=== PATIENT | male | born 1955 | race Caucasian/White ===

== ENCOUNTER → 2016-03-18 | Outpatient (CLI) | payer MEDICARE, BC ==
--- NOTE | 2016-03-18 16:47 | CT ---
EXAMINATION TYPE: CT ChestAbdPelvis w con DATE OF EXAM: 03/18/2016 4:30 PM COMPARISON: Prior CT chest, abdomen pelvis second of April 2015 HISTORY: Follow up after testicular CA. CT DLP: 1839 mGycm Automated exposure control for dose reduction was used. CONTRAST: CT scan of the chest, abdomen and pelvis is performed with Oral Contrast and with IV Contrast, patien t injected with 100 mL of Omnipaque 300. FINDINGS: LUNGS: The lungs are grossly clear, there is no concerning parenchymal mass or nodule identified. T here is no pleural effusion or pneumothorax seen. The tracheobronchial tree is patent. MEDIASTINUM: There are no greater than 1 cm hilar or mediastinal lymph nodes. No pericardial effusi on is seen. AORTA: No significant abnormality is seen. OTHER: No additional significant abnormality is seen. LIVER/GB: Liver shows low attenuation as on previous exam suggestive of fatty infiltration. Focal spa ring is present adjacent to the gallbladder. PANCREAS: No significant abnormality is seen. SPLEEN: No significant abnormality is seen. ADRENALS: No significant abnormality is seen. KIDNEYS: No significant abnormality is seen. REPRODUCTIVE ORGANS: No gross abnormality seen. BOWEL: No significant abnormality is seen. FREE AIR: No Free Air visible. ASCITES: None seen. RETROPERITONEAL ADENOPATHY: Surgical clips compatible with prior lymph node dissection, inferior baldev a cava filter again noted. LYMPH NODES: No greater than 1 cm abdominal or pelvic lymph nodes are appreciated. URINARY BLADDER: Bladder wall thickening is stable. PELVIC ADENOPATHY: The pelvis is somewhat obscured by artifact due to patient's hip prosthetics OSSEOUS STRUCTURES: Postoperative changes are again noted in the lumbar spine, bilateral hips. IMPRESSION: Essentially stable exam.
== END | disposition home or self-care (01) ==
LOC: RADCTMAIN 14:30
PROVIDERS: ATTEND Internal Medicine
DX: C62.90 Malignant neoplasm of unspecified testis, unspecified whether descended or undescended (principal)
CPT/HCPCS: 71260; 74177; Q9967

== ENCOUNTER 2016-11-05 15:30 | Emergency (ER) | payer MEDICARE, BC ==
[2016-11-05] MEDS ORDERED: KETOROLAC 30 MG/ML 1 ML VIAL IVP STA (15:50)
[2016-11-05 16:10] VITALS: RESP 16
--- NOTE | 2016-11-05 16:14 | ED ---
Abdominal Pain HPI - General Chief Complaint: Abdominal Pain Stated Complaint: Abd Pain Time Seen by Provider: 11/05/16 15:40 Source: patient Mode of arrival: EMS Limitations: no limitations - History of Present Illness Initial Comments: 4-year-old male arrives EMS chief complaint of severe abdominal pain lasted for approximately 3-5 minutes after he had a bowel movement. Patient reports that it gradually started to subside. Patient reports he had a pain similar to this when his bowels twisted nonicteric. He has history of hernia surgeries, testicular cancer which is now on remission. Patient denies any recent fever or chills, denies any specific abdominal pain at this time. He reports that the pain is somewhat subsiding on its own. Patient denies any blood in his stools or diarrhea. He states that he had normal bowel movement when after reports the pain started to occur. - Related Data Home Medications Medication Instructions Recorded Confirmed Morphine Sulfate [Ms Contin] 15 mg PO Q8H 11/22/13 11/05/16 Omeprazole [PriLOSEC] 20 mg PO BID 11/22/13 11/05/16 Zolpidem [Ambien] 10 mg PO HS 11/22/13 11/05/16 clonazePAM [KlonoPIN] 0.5 mg PO TID 11/22/13 11/05/16 Venlafaxine HCl [Effexor XR] 75 mg PO BID 07/06/14 11/05/16 Cholecalciferol (Vitamin D3) 2,000 unit PO DAILY 11/05/16 11/05/16 [Vitamin D3] Gemfibrozil [Lopid] 600 mg PO BID 11/05/16 11/05/16 Lisinopril [Zestril] 10 mg PO DAILY 11/05/16 11/05/16 Multivitamins, Thera [Multivitamin 1 tab PO DAILY 11/05/16 11/05/16 (formulary)] Rivaroxaban [Xarelto] 15 mg PO DAILY 11/05/16 11/05/16 sitaGLIPtin PHOS/metFORMIN HCL 1 tab PO BID 11/05/16 11/05/16 [Janumet 50-1,000 mg Tablet] tiZANidine [Zanaflex] 2 mg PO Q8HR 11/05/16 11/05/16 Previous Rx's Medication Instructions Recorded Ciprofloxacin HCl [Cipro] 500 mg PO Q12HR #14 tablet 11/05/16 Dicyclomine [Bentyl] 10 mg PO TID #15 capsule 11/05/16 metroNIDAZOLE [Flagyl] 500 mg PO TID #21 tab 11/05/16 Allergies Allergy/AdvReac Type Severity Reaction Status Date / Time adhesive tape Allergy Rash/Hives Verified 11/05/16 16:25 Iodinated Contrast- Oral and Allergy Rash/Hives Verified 11/05/16 16:09 IV Dye [Iodinated Contrast Media - IV Dye] Review of Systems ROS Statement: Those systems with pertinent positive or pertinent negative responses have been documented in the HPI. ROS Other: All systems not noted in ROS Statement are negative. Past Medical History Past Medical History: Blood Disorder, Cancer, Deep Vein Thrombosis (DVT), GERD/ Reflux, Hyperlipidemia, Osteoarthritis (OA), Pulmonary Embolus (PE), Sleep Apnea /CPAP/BIPAP Additional Past Medical History / Comment(s): neuropathy, testicular ca HAD LYMPH NODES REMOVED- HAD CHEMO(LEFT HIM WITH NERVE DAMAGE FROM KNEES DOWN AND WEAKENED BONES IN HIPS PT REQUIRED TERRANCE HIP REPLACEMENTS) AND bone marrow transplant 2001 , HAS A BBB, GETS LYMPHEDEMA SINCE LYMPH NODE REMOVED, WEARS LT BRACE LOWER LEG. HASCLOTTING FACTOR DISORDER(PROTHROMBIN). KIDNEY STONES History of Any Multi-Drug Resistant Organisms: None Reported Past Surgical History: Back Surgery, Hernia Repair Additional Past Surgical History / Comment(s): filter for dvts ,TERRANCE INGUINAL HERNIA AND ADB HERNIA REPAIR, REMOVED TESTICULAR TUMOR/LYMPH. X2 BACK SX RODS IN PLACE FROM L4 THRU S1. HAD HALF HIS BLADDER REMOVED AT AGE 18 MONTHS REASON UNK, TERRANCE HIP REPLACEMENTS TERRANCE KNEES PATELLAR TENDON TRANSFER, RT ELBOW REMOVED BONE CHIP, RT SHOULDER ROTATOR CUFF AND CUT TOP OF THE BONE OFF,LT BREAST LUMP REMOVE WAS BENIGN. Past Anesthesia/Blood Transfusion Reactions: Motion Sickness Additional Past Anesthesia/Blood Transfusion Reaction / Comment(s): BLOOD TRANSFUSION IN PAST -NO COMPLICATIONS. MOTION SICKNESS/VERTIGO, CLAUSTERPHOBIA. Past Psychological History: Anxiety, Depression, Panic Disorder Smoking Status: Former smoker Past Alcohol Use History: None Reported Past Drug Use History: None Reported - Past Family History Father Additional Family Medical History / Comment(s): 1991 AT AGE 72 EMPHYSEMA Mother Family Medical History: Hyperlipidemia, Hypertension Additional Family Medical History / Comment(s): STILL ALIVE AT 88, HX MIGRAINES General Exam Limitations: no limitations Course Vital Signs 11/05/16 15:43 Temperature 98.2 F Pulse Rate 75 Respiratory 16 Rate Blood Pressure 131/61 O2 Sat by Pulse 99 Oximetry Medical Decision Making - Lab Data Result diagrams: 11/05/16 16:14 11/05/16 16:14 Lab Results 11/05/16 11/05/16 11/05/16 Range/Units 16:14 16:14 16:45 WBC 12.0 H (3.8-10.6) k/uL RBC 4.56 (4.30-5.90) m/uL Hgb 14.0 (13.0-17.5) gm/dL Hct 40.0 (39.0-53.0) % MCV 87.6 (80.0-100.0) fL MCH 30.8 (25.0-35.0) pg MCHC 35.1 (31.0-37.0) g/dL RDW 13.9 (11.5-15.5) % Plt Count 182 (150-450) k/uL Neutrophils % 87 % Lymphocytes % 8 % Monocytes % 4 % Eosinophils % 1 % Basophils % 0 % Neutrophils # 10.5 H (1.3-7.7) k/uL Lymphocytes # 0.9 L (1.0-4.8) k/uL Monocytes # 0.4 (0-1.0) k/uL Eosinophils # 0.1 (0-0.7) k/uL Basophils # 0.0 (0-0.2) k/uL Sodium 140 (137-145) mmol/L Potassium 4.5 (3.5-5.1) mmol/L Chloride 104 (98-107) mmol/L Carbon Dioxide 27 (22-30) mmol/L Anion Gap 9 mmol/L BUN 18 (9-20) mg/dL Creatinine 0.90 (0.66-1.25) mg/dL Est GFR (MDRD) Af Amer >60 (>60 ml/min/1.73 sqM) Est GFR (MDRD) Non-Af >60 (>60 ml/min/1.73 sqM) Glucose 116 H (74-99) mg/dL Calcium 9.2 (8.4-10.2) mg/dL Total Bilirubin 0.6 (0.2-1.3) mg/dL AST 23 (17-59) U/L ALT 42 (21-72) U/L Alkaline Phosphatase 85 (38-126) U/L Total Protein 7.1 (6.3-8.2) g/dL Albumin 4.2 (3.5-5.0) g/dL Amylase 45 (30-110) U/L Lipase 63 (23-300) U/L Urine Color Yellow Urine Appearance Clear (Clear) Urine pH 5.0 (5.0-8.0) Ur Specific [place] 1.015 (1.001-1.035) Urine Protein Negative (Negative) Urine Glucose (UA) Negative (Negative) Urine Ketones Negative (Negative) Urine Blood Negative (Negative) Urine Nitrite Negative (Negative) Urine Bilirubin Negative (Negative) Urine Urobilinogen <2.0 (<2.0) mg/dL Ur Leukocyte Esterase Negative (Negative) Disposition Clinical Impression: Abdominal pain Disposition: HOME SELF-CARE Condition: Good Instructions: Abdominal Pain (ED) Additional Instructions: Patient advised to follow-up with primary care provider tomorrow. Take the antibiotics and Bentyl as prescribed. Return to the emergency department if any alarming signs or symptoms occur. Prescriptions: Ciprofloxacin HCl [Cipro] 500 mg PO Q12HR #14 tablet Dicyclomine [Bentyl] 10 mg PO TID #15 capsule metroNIDAZOLE [Flagyl] 500 mg PO TID #21 tab Referrals: Vivien Meneses MD [Primary Care Provider] - 1-2 days Time of Disposition: 17:39
[2016-11-05 16:29] LABS: Basophils % (A) 0 %; CH 32.2; CHCM 36.9; Eosinophils # (A) 0.1 k/uL (0-0.7); Eosinophils % (A) 1 %; HDW 2.95; Luc % (Auto) 1; Lymphocytes # (A) 0.9 k/uL (1.0-4.8); Lymphocytes % (A) 8 %; MCH 30.8 pg (25.0-35.0); MCHC 35.1 g/dL (31.0-37.0); MCV 87.6 fL (80.0-100.0); Mean Platelet Volume 7.6; Monocytes # (A) 0.4 k/uL (0-1.0); Monocytes % (A) 4 %; Neutrophils # (A) 10.5 k/uL (1.3-7.7); Neutrophils % (A) 87 %; RBC 4.56 m/uL (4.30-5.90); RDW 13.9 % (11.5-15.5); WBC (Perox) 11.36
--- NOTE | 2016-11-05 16:32 | XR ---
EXAMINATION TYPE: XR KUB DATE OF EXAM: 11/05/2016 COMPARISON: NONE HISTORY: Abdominal pain TECHNIQUE: One view abdominal series FINDINGS: The osseous structures are intact. The bowel gas pattern is nonspecific. Previous surgery involving the vertebral column abdomen and joints noted. Suggestion of possible IVC filter which is somewhat ti lted. Correlate clinically.. IMPRESSION: 1. Nonspecific abdomen.
[2016-11-05 16:34] LABS: ALT 42 U/L (21-72); AST 23 U/L (17-59); Alkaline Phosphatase 85 U/L (38-126); Amylase 45 U/L (30-110); Anion Gap 9 mmol/L; Blood Urea Nitrogen 18 mg/dL (9-20); Calcium 9.2 mg/dL (8.4-10.2); Carbon Dioxide 27 mmol/L (22-30); Chloride 104 mmol/L (98-107); Glucose 116 mg/dL (74-99); Non-African American GFR(MDRD) >60 (>60 ml/min/1.73 sqM); Potassium 4.5 mmol/L (3.5-5.1); Sodium 140 mmol/L (137-145); Total Bilirubin 0.6 mg/dL (0.2-1.3); Total Protein 7.1 g/dL (6.3-8.2)
[2016-11-05 16:54] LABS: Appearance,Urine Clear (Clear); Bilirubin,Urine Negative (Negative); Glucose,Urine (UA) Negative (Negative); Ketones,Urine Negative (Negative); Leukocyte Esterase,Urine Negative (Negative); Nitrite,Urine Negative (Negative); Protein,Urine Negative (Negative); Specific Gravity,Urine 1.015 (1.001-1.035); UA Billing (MACRO vs. MICRO) CHEM; Urobilinogen,Urine <2.0 mg/dL (<2.0)
[2016-11-05] MEDS ORDERED: DICYCLOMINE 10 MG/ML 2 ML AMP IM STA (17:40)
[2016-11-05 17:55] VITALS: BP 120/70; PULSE 68; TEMP 98
== END 2016-11-05 17:53 | disposition home or self-care (01) ==
LOC: EC 15:30
DX: R10.9 Unspecified abdominal pain (principal); K21.9 Gastro-esophageal reflux disease without esophagitis; E78.5 Hyperlipidemia, unspecified; C62.90 Malignant neoplasm of unspecified testis, unspecified whether descended or undescended; F41.0 Panic disorder [episodic paroxysmal anxiety]; F32.9 Major depressive disorder, single episode, unspecified; G47.30 Sleep apnea, unspecified; Z99.89 Dependence on other enabling machines and devices; Z90.49 Acquired absence of other specified parts of digestive tract; Z79.891 Long term (current) use of opiate analgesic; Z79.899 Other long term (current) drug therapy; Z79.84 Long term (current) use of oral hypoglycemic drugs; Z87.891 Personal history of nicotine dependence; Z91.048 Other nonmedicinal substance allergy status; Z53.20 Procedure and treatment not carried out because of patient's decision for unspecified reasons
CPT/HCPCS: 36415; 74000; 80053; 81003; 82150; 83690; 85025; 96372; 99284

== ENCOUNTER 2017-02-01 17:21 | Emergency (ER) | payer MEDICARE, BC ==
[2017-02-01] MEDS ORDERED: ACETAMINOPHEN TAB 500 MG TAB PO STA (17:38)
[2017-02-01] MEDS ORDERED: IBUPROFEN 600 MG TAB PO STA (17:38)
--- NOTE | 2017-02-01 17:46 | ED ---
General Adult HPI - General Chief complaint: Nausea/Vomiting/Diarrhea Stated complaint: pain all over, nausea, eye pain Time Seen by Provider: 02/01/17 17:34 Source: patient, RN notes reviewed Mode of arrival: ambulatory Limitations: no limitations - History of Present Illness Initial comments: 61-year-old male presents to the emergency department with a chief complaint of a allover body aches and fever. He states he has had some nausea. He states that around 10:00 this morning he started to feel this today. He denies any vomiting with this. He states that he is not taking any medicine for the fever. They were concerned due to how he was feeling. Patient denies any recent shortness of breath, chest pain, back pain, abdominal pain, nausea vomiting, numbness or tingling, dysuria or hematuria, constipation or diarrhea, headaches or visual changes, or any other current symptoms. - Related Data Home Medications Medication Instructions Recorded Confirmed Morphine Sulfate [Ms Contin] 15 mg PO Q8H 11/22/13 02/01/17 Omeprazole [PriLOSEC] 20 mg PO DAILY 11/22/13 02/01/17 Zolpidem [Ambien] 10 mg PO HS 11/22/13 02/01/17 clonazePAM [KlonoPIN] 0.5 mg PO BID 11/22/13 02/01/17 Venlafaxine HCl [Effexor XR] 75 mg PO BID 07/06/14 02/01/17 Cholecalciferol (Vitamin D3) 2,000 unit PO DAILY 11/05/16 02/01/17 [Vitamin D3] Gemfibrozil [Lopid] 600 mg PO DAILY 11/05/16 02/01/17 Lisinopril [Zestril] 10 mg PO DAILY 11/05/16 02/01/17 Multivitamins, Thera [Multivitamin 1 tab PO DAILY 11/05/16 02/01/17 (formulary)] sitaGLIPtin PHOS/metFORMIN HCL 1 tab PO BID 11/05/16 02/01/17 [Janumet 50-1,000 mg Tablet] tiZANidine [Zanaflex] 2 mg PO DAILY 11/05/16 02/01/17 Rivaroxaban [Xarelto] 20 mg PO DAILY 02/01/17 02/01/17 tiZANidine [Zanaflex] 4 mg PO HS 02/01/17 02/01/17 Previous Rx's Medication Instructions Recorded Albuterol Inhaler [Ventolin Hfa 1 - 2 puff INHALATION Q4-6H PRN #1 02/01/17 Inhaler] inhaler Levofloxacin [Levaquin] 750 mg PO DAILY #7 tab 02/01/17 Allergies Allergy/AdvReac Type Severity Reaction Status Date / Time adhesive tape Allergy Rash/Hives Verified 02/01/17 18:18 Iodinated Contrast- Oral and Allergy Rash/Hives Verified 02/01/17 18:18 IV Dye [Iodinated Contrast Media - IV Dye] Review of Systems ROS Statement: Those systems with pertinent positive or pertinent negative responses have been documented in the HPI. ROS Other: All systems not noted in ROS Statement are negative. Past Medical History Past Medical History: Blood Disorder, Cancer, Deep Vein Thrombosis (DVT), GERD/ Reflux, Hyperlipidemia, Osteoarthritis (OA), Pulmonary Embolus (PE), Sleep Apnea /CPAP/BIPAP Additional Past Medical History / Comment(s): neuropathy, testicular ca HAD LYMPH NODES REMOVED- HAD CHEMO(LEFT HIM WITH NERVE DAMAGE FROM KNEES DOWN AND WEAKENED BONES IN HIPS PT REQUIRED TERRANCE HIP REPLACEMENTS) AND bone marrow transplant 2001 , HAS A BBB, GETS LYMPHEDEMA SINCE LYMPH NODE REMOVED, WEARS LT BRACE LOWER LEG. HASCLOTTING FACTOR DISORDER(PROTHROMBIN). KIDNEY STONES History of Any Multi-Drug Resistant Organisms: None Reported Past Surgical History: Back Surgery, Hernia Repair Additional Past Surgical History / Comment(s): filter for dvts ,TERRANCE INGUINAL HERNIA AND ADB HERNIA REPAIR, REMOVED TESTICULAR TUMOR/LYMPH. X2 BACK SX RODS IN PLACE FROM L4 THRU S1. HAD HALF HIS BLADDER REMOVED AT AGE 18 MONTHS REASON UNK, TERRANCE HIP REPLACEMENTS TERRANCE KNEES PATELLAR TENDON TRANSFER, RT ELBOW REMOVED BONE CHIP, RT SHOULDER ROTATOR CUFF AND CUT TOP OF THE BONE OFF,LT BREAST LUMP REMOVE WAS BENIGN. Past Anesthesia/Blood Transfusion Reactions: Motion Sickness Additional Past Anesthesia/Blood Transfusion Reaction / Comment(s): BLOOD TRANSFUSION IN PAST -NO COMPLICATIONS. MOTION SICKNESS/VERTIGO, CLAUSTERPHOBIA. Past Psychological History: Anxiety, Depression, Panic Disorder Smoking Status: Former smoker Past Alcohol Use History: None Reported Past Drug Use History: None Reported - Past Family History Father Additional Family Medical History / Comment(s): 1991 AT AGE 72 EMPHYSEMA Mother Family Medical History: Hyperlipidemia, Hypertension Additional Family Medical History / Comment(s): STILL ALIVE AT 88, HX MIGRAINES General Exam Limitations: no limitations General appearance: alert, in no apparent distress Head exam: Present: atraumatic, normocephalic, normal inspection ENT exam: Present: normal exam, mucous membranes moist Neck exam: Present: normal inspection. Absent: tenderness, meningismus, lymphadenopathy Respiratory exam: Present: normal lung sounds bilaterally. Absent: respiratory distress, wheezes, rales, rhonchi, stridor Cardiovascular Exam: Present: regular rate, normal rhythm, normal heart sounds. Absent: systolic murmur, diastolic murmur, rubs, gallop, clicks Extremities exam: Present: normal inspection, full ROM, normal capillary refill. Absent: tenderness, pedal edema, joint swelling, calf tenderness Back exam: Present: normal inspection Neurological exam: Present: alert, oriented X3 Psychiatric exam: Present: normal affect, normal mood Skin exam: Present: warm, dry, intact, normal color. Absent: rash Course Vital Signs 02/01/17 02/01/17 17:28 18:41 Temperature 100.5 F H 100.3 F H Pulse Rate 100 93 Respiratory 20 16 Rate Blood Pressure 97/57 104/52 O2 Sat by Pulse 97 94 L Oximetry Medical Decision Making - Medical Decision Making 61-year-old male presents for fever and bodyaches. At this time patient's lab work and imaging have been reviewed. This time it appears the patient does have a new developing pneumonia. At this time we discussed continuing to take Tylenol home for fever. We discussed taking Levaquin as prescribed help slightly pneumonia and we discussed follow-up return parameters. Patient stated he understood and all questions have been answered. He will be discharged. - Lab Data Result diagrams: 02/01/17 18:32 02/01/17 18:32 Lab Results 02/01/17 02/01/17 02/01/17 Range/Units 17:40 18:32 18:32 WBC 18.8 H (3.8-10.6) k/uL RBC 4.28 L (4.30-5.90) m/uL Hgb 13.3 (13.0-17.5) gm/dL Hct 38.8 L (39.0-53.0) % MCV 90.6 (80.0-100.0) fL MCH 31.1 (25.0-35.0) pg MCHC 34.3 (31.0-37.0) g/dL RDW 15.0 (11.5-15.5) % Plt Count 177 (150-450) k/uL Neutrophils % 89 % Lymphocytes % 6 % Monocytes % 4 % Eosinophils % 1 % Basophils % 0 % Neutrophils # 16.8 H (1.3-7.7) k/uL Lymphocytes # 1.0 (1.0-4.8) k/uL Monocytes # 0.7 (0-1.0) k/uL Eosinophils # 0.2 (0-0.7) k/uL Basophils # 0.0 (0-0.2) k/uL Sodium 138 (137-145) mmol/L Potassium 4.2 (3.5-5.1) mmol/L Chloride 102 (98-107) mmol/L Carbon Dioxide 27 (22-30) mmol/L Anion Gap 9 mmol/L BUN 20 (9-20) mg/dL Creatinine 1.00 (0.66-1.25) mg/dL Est GFR (MDRD) Af Amer >60 (>60 ml/min/1.73 sqM) Est GFR (MDRD) Non-Af >60 (>60 ml/min/1.73 sqM) Glucose 112 H (74-99) mg/dL Plasma Lactic Acid Ketan (0.7-2.0) mmol/L Calcium 9.2 (8.4-10.2) mg/dL Total Bilirubin 0.9 (0.2-1.3) mg/dL AST 22 (17-59) U/L ALT 45 (21-72) U/L Alkaline Phosphatase 86 (38-126) U/L Total Protein 7.0 (6.3-8.2) g/dL Albumin 4.2 (3.5-5.0) g/dL Amylase <30 L (30-110) U/L Lipase 57 (23-300) U/L Urine Color Urine Appearance (Clear) Urine pH (5.0-8.0) Ur Specific [place] (1.001-1.035) Urine Protein (Negative) Urine Glucose (UA) (Negative) Urine Ketones (Negative) Urine Blood (Negative) Urine Nitrite (Negative) Urine Bilirubin (Negative) Urine Urobilinogen (<2.0) mg/dL Ur Leukocyte Esterase (Negative) Urine RBC (0-5) /hpf Urine WBC (0-5) /hpf Hyaline Casts (0-2) /lpf Urine Mucus (None) /hpf Influenza Type A RNA Not Detected (Not Detectd) Influenza Type B (PCR) Not Detected (Not Detectd) 02/01/17 02/01/17 Range/Units 18:32 19:15 WBC (3.8-10.6) k/uL RBC (4.30-5.90) m/uL Hgb (13.0-17.5) gm/dL Hct (39.0-53.0) % MCV (80.0-100.0) fL MCH (25.0-35.0) pg MCHC (31.0-37.0) g/dL RDW (11.5-15.5) % Plt Count (150-450) k/uL Neutrophils % % Lymphocytes % % Monocytes % % Eosinophils % % Basophils % % Neutrophils # (1.3-7.7) k/uL Lymphocytes # (1.0-4.8) k/uL Monocytes # (0-1.0) k/uL Eosinophils # (0-0.7) k/uL Basophils # (0-0.2) k/uL Sodium (137-145) mmol/L Potassium (3.5-5.1) mmol/L Chloride (98-107) mmol/L Carbon Dioxide (22-30) mmol/L Anion Gap mmol/L BUN (9-20) mg/dL Creatinine (0.66-1.25) mg/dL Est GFR (MDRD) Af Amer (>60 ml/min/1.73 sqM) Est GFR (MDRD) Non-Af (>60 ml/min/1.73 sqM) Glucose (74-99) mg/dL Plasma Lactic Acid Ketan 1.7 (0.7-2.0) mmol/L Calcium (8.4-10.2) mg/dL Total Bilirubin (0.2-1.3) mg/dL AST (17-59) U/L ALT (21-72) U/L Alkaline Phosphatase (38-126) U/L Total Protein (6.3-8.2) g/dL Albumin (3.5-5.0) g/dL Amylase (30-110) U/L Lipase (23-300) U/L Urine Color Yellow Urine Appearance Clear (Clear) Urine pH 5.5 (5.0-8.0) Ur Specific [place] 1.023 (1.001-1.035) Urine Protein Trace H (Negative) Urine Glucose (UA) Negative (Negative) Urine Ketones Negative (Negative) Urine Blood Small H (Negative) Urine Nitrite Negative (Negative) Urine Bilirubin Negative (Negative) Urine Urobilinogen <2.0 (<2.0) mg/dL Ur Leukocyte Esterase Negative (Negative) Urine RBC 5 (0-5) /hpf Urine WBC 1 (0-5) /hpf Hyaline Casts 1 (0-2) /lpf Urine Mucus Occasional H (None) /hpf Influenza Type A RNA (Not Detectd) Influenza Type B (PCR) (Not Detectd) - Radiology Data Radiology results: report reviewed, image reviewed Disposition Clinical Impression: Right upper lobe pneumonia Disposition: HOME SELF-CARE Condition: Stable Instructions: Bacterial Pneumonia (ED) Additional Instructions: Please use medication as discussed. Please follow up with family doctor if symptoms have not improved over the next two days. Please return to the emergency room if your symptoms increase or worsen or for any other concerns. Prescriptions: Albuterol Inhaler [Ventolin Hfa Inhaler] 1 - 2 puff INHALATION Q4-6H PRN #1 inhaler PRN Reason: Cough Levofloxacin [Levaquin] 750 mg PO DAILY #7 tab Referrals: Vivien Meneses MD [Primary Care Provider] - 1-2 days Time of Disposition: 19:34
[2017-02-01] MEDS ORDERED: SODIUM CHLORIDE 0.9% 500 ML IV STA (18:15)
[2017-02-01] MEDS ORDERED: ONDANSETRON 4 MG/2 ML VIAL IVP STA (18:32)
[2017-02-01 18:45] LABS: Basophils % (A) 0 %; CH 31.3; CHCM 34.7; Eosinophils # (A) 0.2 k/uL (0-0.7); Eosinophils % (A) 1 %; HCT 38.8 % (39.0-53.0); HDW 2.71; HGB 13.3 gm/dL (13.0-17.5); Luc # (Auto) 0.08; Luc % (Auto) 0; Lymphocytes % (A) 6 %; MCH 31.1 pg (25.0-35.0); MCHC 34.3 g/dL (31.0-37.0); MCV 90.6 fL (80.0-100.0); Monocytes # (A) 0.7 k/uL (0-1.0); Monocytes % (A) 4 %; Neutrophils # (A) 16.8 k/uL (1.3-7.7); Neutrophils % (A) 89 %; RBC 4.28 m/uL (4.30-5.90); WBC 18.8 k/uL (3.8-10.6); WBC (Perox) 19.78
[2017-02-01 18:55] LABS: ALT 45 U/L (21-72); AST 22 U/L (17-59); Alkaline Phosphatase 86 U/L (38-126); Amylase <30 U/L (30-110); Anion Gap 9 mmol/L; Blood Urea Nitrogen 20 mg/dL (9-20); Calcium 9.2 mg/dL (8.4-10.2); Carbon Dioxide 27 mmol/L (22-30); Chloride 102 mmol/L (98-107); Glucose 112 mg/dL (74-99); Non-African American GFR(MDRD) >60 (>60 ml/min/1.73 sqM); Potassium 4.2 mmol/L (3.5-5.1); Sodium 138 mmol/L (137-145); Total Bilirubin 0.9 mg/dL (0.2-1.3)
[2017-02-01] MEDS ORDERED: MORPHINE SULFATE 2 MG/ML SYRINGE IVP STA (19:03)
--- NOTE | 2017-02-01 19:04 | XR ---
EXAMINATION TYPE: XR chest 2V DATE OF EXAM: 02/01/2017 COMPARISON: 08/03/2014 HISTORY: Cough TECHNIQUE: Frontal and lateral views of the chest are obtained. FINDINGS: There is some mild infiltrate in the anterior right upper lobe. The other lung wood are fairly clear. There is no pleural effusion. Heart size is normal. Bony thorax is intact. There is ost eoarthritis in the right shoulder joint. IMPRESSION: There is evidence of some new mild infiltrate in the right upper lobe compared to old ex am. Normal heart.
[2017-02-01] MEDS ORDERED: LEVOFLOXACIN 750 MG TAB PO STA (19:09)
[2017-02-01 19:30] LABS: Appearance,Urine Clear (Clear); Bilirubin,Urine Negative (Negative); Glucose,Urine (UA) Negative (Negative); Ketones,Urine Negative (Negative); Leukocyte Esterase,Urine Negative (Negative); Mucus,Urine Occasional /hpf; Nitrite,Urine Negative (Negative); PH, Urine 5.5 (5.0-8.0); Particle Count 2363; Protein,Urine Trace (Negative); RBC,Urine 5 /hpf (0-5); Specific Gravity,Urine 1.023 (1.001-1.035); UA Billing (MACRO vs. MICRO) MICRO; Urobilinogen,Urine <2.0 mg/dL (<2.0); WBC,Urine 1 /hpf (0-5)
[2017-02-01 19:46] VITALS: BP 100/53; PULSE 85; RESP 17
[2017-02-01 19:54] VITALS: TEMP 97.2
== END 2017-02-01 19:53 | disposition home or self-care (01) ==
LOC: EC 17:21
DX: J18.9 Pneumonia, unspecified organism (principal); E78.5 Hyperlipidemia, unspecified; K21.9 Gastro-esophageal reflux disease without esophagitis; M19.90 Unspecified osteoarthritis, unspecified site; G47.30 Sleep apnea, unspecified; Z99.89 Dependence on other enabling machines and devices; F41.0 Panic disorder [episodic paroxysmal anxiety]; F32.9 Major depressive disorder, single episode, unspecified; Z85.47 Personal history of malignant neoplasm of testis; Z86.711 Personal history of pulmonary embolism; Z86.718 Personal history of other venous thrombosis and embolism; Z87.891 Personal history of nicotine dependence; Z79.84 Long term (current) use of oral hypoglycemic drugs; Z79.891 Long term (current) use of opiate analgesic; Z79.01 Long term (current) use of anticoagulants; Z79.899 Other long term (current) drug therapy; Z91.048 Other nonmedicinal substance allergy status; Z91.041 Radiographic dye allergy status
CPT/HCPCS: 99283; 96374; 36415; 80053; 82150; 83605; 83690; 85025; 81001; 87040; 87086; 87502; 71020; J2405

== ENCOUNTER → 2017-07-16 | Outpatient (CLI) | payer MEDICARE, BC ==
[2017-07-16 14:05] LABS: Blood Urea Nitrogen 25 mg/dL (9-20)
--- NOTE | 2017-07-16 15:23 | CT ---
EXAMINATION TYPE: CT abdomen pelvis w con DATE OF EXAM: 07/16/2017 COMPARISON: NONE INDICATION: Patient has no complaints at time of study. Follow up for known testicular ca. DLP: 1551 mGycm, Automated exposure control for dose reduction was used. CONTRAST: 100 mL of Isovue 300. Study performed with Oral Contrast TECHNIQUE: Axial images were obtained from above the diaphragm to the pubic rami in the axial plane a t 5 mm thick sections. Reconstructed images are reviewed on the computer in the coronal plane. FINDINGS: Limited CT sections are obtained the lung bases. The lung bases are clear. CT ABDOMEN: Liver: There is moderate fatty infiltration throughout the liver. No discrete masses or cysts are natasha dent. Spleen: Normal Pancreas: Somewhat small. Lymphadenopathy: Postsurgical changes are at the level of the renal arteries and veins in the lymph n ode chains. No suspicious adenopathy is evident. No periaortic or retrocaval adenopathy. Retrocrural peripheral mesenteric normal limits. Adrenal glands: The adrenal glands are normal. Gallbladder: Normal Kidneys: No masses are evident. No hydronephrosis is present. No cysts are present. Aorta: Vascular calcification is within the aorta. Inferior vena cava: Normal. CT PELVIS: Loops of bowel within the abdomen and pelvis are normal. There are loops of bowel which are incom pletely distended or lack oral contrast limiting their evaluation. Diverticular changes without acute diverticulitis within the sigmoid colon. Appendix: Normal as visualized. Urinary bladder: Decompressed with limited evaluation. The upper portion within the [id number] priya ears normal Genitourinary structures: Beam hardening artifact limits evaluation of the prostate Osseous structures: No suspicious lytic or sclerotic lesions. Bilateral hip prostheses are present. P ostsurgical changes are within the lower lumbar spine. IMPRESSIONS: 1. No suspicious changes to suggest metastatic disease within the [id number]
== END | disposition home or self-care (01) ==
LOC: RADCTMAIN 13:17
PROVIDERS: ATTEND Internal Medicine
DX: C62.11 Malignant neoplasm of descended right testis (principal)
CPT/HCPCS: 82565; 84520; 74177; 36415; Q9967

== ENCOUNTER 2018-02-28 20:03 | Emergency (ER) | payer MEDICARE, BC ==
[2018-02-28 20:14] VITALS: RESP 16
[2018-02-28] MEDS ORDERED: MORPHINE SULFATE 4 MG/ML SYRINGE IV STA (21:03)
--- NOTE | 2018-02-28 21:09 | ED ---
Extremity Problem HPI - General Chief complaint: Extremity Problem,Nontraumatic Stated complaint: Leg pain Time Seen by Provider: 02/28/18 20:39 Source: patient Mode of arrival: ambulatory Limitations: no limitations - History of Present Illness Initial comments: This patient is 62-year-old man with history of previous DVT/PE who states that he started having symptoms behind his right knee that felt similar to previous DVT. He states that it came on this morning. States that the pain was about a 6 out of 10. He states that he did some walking this afternoon and then he also was feeling short of breath and he was concerned that he may be developing another PE. He does have a Dave filter but states that he has previously had clots slipped through the filter area the patient does take Xarelto and states that he has been compliant with his medication. He is not having chest pain. He is not having any hemoptysis. No lightheadedness or syncope. MD Complaint: extremity pain -: hour(s) Location: right, lower extremity History of Same: Yes Radiation: none Severity scale (1-10): 6 Quality: aching Consistency: constant Improves with: nothing Worsens with: palpation Associated Symptoms: shortness of breath - Related Data Home Medications Medication Instructions Recorded Confirmed Morphine Sulfate [Ms Contin] 15 mg PO Q8H 11/22/13 02/28/18 Omeprazole [PriLOSEC] 20 mg PO DAILY 11/22/13 02/28/18 Zolpidem [Ambien] 10 mg PO HS 11/22/13 02/28/18 clonazePAM [KlonoPIN] 0.5 mg PO BID 11/22/13 02/28/18 Venlafaxine HCl [Effexor XR] 75 mg PO BID 07/06/14 02/28/18 Gemfibrozil [Lopid] 600 mg PO DAILY 11/05/16 02/28/18 Lisinopril [Zestril] 10 mg PO DAILY 11/05/16 02/28/18 sitaGLIPtin PHOS/metFORMIN HCL 1 tab PO BID 11/05/16 02/28/18 [Janumet 50-1,000 mg Tablet] Rivaroxaban [Xarelto] 20 mg PO DAILY 02/01/17 02/28/18 tiZANidine [Zanaflex] 4 mg PO BID 02/01/17 02/28/18 Allergies Allergy/AdvReac Type Severity Reaction Status Date / Time adhesive tape Allergy Rash/Hives Verified 02/28/18 20:48 Iodinated Contrast- Oral and Allergy Rash/Hives Verified 02/28/18 20:48 IV Dye [Iodinated Contrast Media - IV Dye] Review of Systems ROS Statement: Those systems with pertinent positive or pertinent negative responses have been documented in the HPI. ROS Other: All systems not noted in ROS Statement are negative. Constitutional: Denies: fever, chills, weakness Respiratory: Denies: cough, dyspnea, hemoptysis Cardiovascular: Reports: dyspnea on exertion. Denies: chest pain, palpitations , edema, syncope Gastrointestinal: Denies: abdominal pain, nausea, vomiting Genitourinary: Denies: dysuria Musculoskeletal: Reports: as per HPI. Denies: back pain Skin: Denies: rash Neurological: Denies: headache, weakness, numbness, paresthesias Past Medical History Past Medical History: Blood Disorder, Cancer, Deep Vein Thrombosis (DVT), GERD/ Reflux, Hyperlipidemia, Osteoarthritis (OA), Pulmonary Embolus (PE), Sleep Apnea /CPAP/BIPAP Additional Past Medical History / Comment(s): neuropathy, testicular ca HAD LYMPH NODES REMOVED- HAD CHEMO(LEFT HIM WITH NERVE DAMAGE FROM KNEES DOWN AND WEAKENED BONES IN HIPS PT REQUIRED TERRANCE HIP REPLACEMENTS) AND bone marrow transplant 2001 , HAS A BBB, GETS LYMPHEDEMA SINCE LYMPH NODE REMOVED, WEARS LT BRACE LOWER LEG. HASCLOTTING FACTOR DISORDER(PROTHROMBIN). KIDNEY STONES History of Any Multi-Drug Resistant Organisms: None Reported Past Surgical History: Back Surgery, Hernia Repair Additional Past Surgical History / Comment(s): filter for dvts ,TERRANCE INGUINAL HERNIA AND ADB HERNIA REPAIR, REMOVED TESTICULAR TUMOR/LYMPH. X2 BACK SX RODS IN PLACE FROM L4 THRU S1. HAD HALF HIS BLADDER REMOVED AT AGE 18 MONTHS REASON UNK, TERRANCE HIP REPLACEMENTS TERRANCE KNEES PATELLAR TENDON TRANSFER, RT ELBOW REMOVED BONE CHIP, RT SHOULDER ROTATOR CUFF AND CUT TOP OF THE BONE OFF,LT BREAST LUMP REMOVE WAS BENIGN. Past Anesthesia/Blood Transfusion Reactions: Motion Sickness Additional Past Anesthesia/Blood Transfusion Reaction / Comment(s): BLOOD TRANSFUSION IN PAST -NO COMPLICATIONS. MOTION SICKNESS/VERTIGO, CLAUSTERPHOBIA. Past Psychological History: Anxiety, Depression, Panic Disorder Smoking Status: Former smoker Past Alcohol Use History: None Reported Past Drug Use History: None Reported - Past Family History Father Additional Family Medical History / Comment(s): 1991 AT AGE 72 EMPHYSEMA Mother Family Medical History: Hyperlipidemia, Hypertension Additional Family Medical History / Comment(s): STILL ALIVE AT 88, HX MIGRAINES General Exam Limitations: no limitations General appearance: alert, in no apparent distress Head exam: Present: atraumatic, normocephalic Eye exam: Present: normal appearance. Absent: scleral icterus, conjunctival injection ENT exam: Present: normal oropharynx Neck exam: Present: normal inspection Respiratory exam: Present: normal lung sounds bilaterally. Absent: respiratory distress, wheezes, rales, rhonchi, stridor Cardiovascular Exam: Present: regular rate, normal rhythm, normal heart sounds. Absent: systolic murmur, diastolic murmur, rubs, gallop GI/Abdominal exam: Present: soft. Absent: distended, tenderness, guarding, rebound, rigid, mass Extremities exam: Present: normal inspection, full ROM, normal capillary refill , other (The patient does have some tenderness at the right popliteal fossa. No palpable cord. No Homans sign.). Absent: pedal edema Back exam: Present: normal inspection. Absent: CVA tenderness (R), CVA tenderness (L) Neurological exam: Present: alert Skin exam: Present: warm, dry, intact, normal color. Absent: rash Course Vital Signs 02/28/18 20:10 Temperature 98.2 F Pulse Rate 93 Respiratory 16 Rate Blood Pressure 102/65 O2 Sat by Pulse 93 L Oximetry Medical Decision Making - Lab Data Result diagrams: 02/28/18 20:24 02/28/18 20:24 Lab Results 02/28/18 02/28/18 02/28/18 Range/Units 20:24 20:24 20:29 WBC 7.7 (3.8-10.6) k/uL RBC 4.65 (4.30-5.90) m/uL Hgb 14.5 (13.0-17.5) gm/dL Hct 41.4 (39.0-53.0) % MCV 89.0 (80.0-100.0) fL MCH 31.2 (25.0-35.0) pg MCHC 35.1 (31.0-37.0) g/dL RDW 13.5 (11.5-15.5) % Plt Count 176 (150-450) k/uL Neutrophils % 68 % Lymphocytes % 22 % Monocytes % 6 % Eosinophils % 2 % Basophils % 0 % Neutrophils # 5.2 (1.3-7.7) k/uL Lymphocytes # 1.7 (1.0-4.8) k/uL Monocytes # 0.5 (0-1.0) k/uL Eosinophils # 0.2 (0-0.7) k/uL Basophils # 0.0 (0-0.2) k/uL D-Dimer 0.55 (<0.60) mg/L FEU Sodium 141 (137-145) mmol/L Potassium 4.6 (3.5-5.1) mmol/L Chloride 103 (98-107) mmol/L Carbon Dioxide 27 (22-30) mmol/L Anion Gap 11 mmol/L BUN 19 (9-20) mg/dL Creatinine 0.97 (0.66-1.25) mg/dL Est GFR (CKD-EPI)AfAm >90 (>60 ml/min/1.73 sqM) Est GFR (CKD-EPI)NonAf 83 (>60 ml/min/1.73 sqM) Glucose 106 H (74-99) mg/dL Calcium 9.8 (8.4-10.2) mg/dL Total Bilirubin 0.4 (0.2-1.3) mg/dL AST 28 (17-59) U/L ALT 29 (21-72) U/L Alkaline Phosphatase 87 (38-126) U/L Total Protein 7.3 (6.3-8.2) g/dL Albumin 4.3 (3.5-5.0) g/dL Disposition Clinical Impression: Leg pain Disposition: HOME SELF-CARE Condition: Good Instructions: Leg Pain (ED) Is patient prescribed a controlled substance at d/c from ED?: No Referrals: Vivien Meneses MD [Primary Care Provider] - 1-2 days
[2018-02-28 21:28] LABS: ALT 29 U/L (21-72); AST 28 U/L (17-59); Albumin 4.3 g/dL (3.5-5.0); Alkaline Phosphatase 87 U/L (38-126); Anion Gap 11 mmol/L; Basophils % (A) 0 %; Blood Urea Nitrogen 19 mg/dL (9-20); Calcium 9.8 mg/dL (8.4-10.2); Carbon Dioxide 27 mmol/L (22-30); Chloride 103 mmol/L (98-107); Eosinophils # (A) 0.2 k/uL (0-0.7); Eosinophils % (A) 2 %; Glucose 106 mg/dL (74-99); HCT 41.4 % (39.0-53.0); HGB 14.5 gm/dL (13.0-17.5); Lymphocytes # (A) 1.7 k/uL (1.0-4.8); Lymphocytes % (A) 22 %; MCH 31.2 pg (25.0-35.0); MCHC 35.1 g/dL (31.0-37.0); Mean Platelet Volume 7.5; Monocytes # (A) 0.5 k/uL (0-1.0); Monocytes % (A) 6 %; Neutrophils # (A) 5.2 k/uL (1.3-7.7); Neutrophils % (A) 68 %; Platelet Count 176 k/uL (150-450); Potassium 4.6 mmol/L (3.5-5.1); RBC 4.65 m/uL (4.30-5.90); RDW 13.5 % (11.5-15.5); Sodium 141 mmol/L (137-145); Total Bilirubin 0.4 mg/dL (0.2-1.3); Total Protein 7.3 g/dL (6.3-8.2); WBC 7.7 k/uL (3.8-10.6)
--- NOTE | 2018-02-28 21:32 | XR ---
EXAMINATION TYPE: XR chest 2V DATE OF EXAM: 02/28/2018 COMPARISON: 02/01/2017 HISTORY: Knee pain. Chest pain. TECHNIQUE: Frontal and lateral views of the chest are obtained. FINDINGS: Heart and mediastinum are normal. Lungs are clear. Costophrenic angles are clear. There ar e no hilar masses. Bony thorax is intact. There is significant osteoarthritis in the right shoulder j oint. IMPRESSION: No active cardiopulmonary disease. No adverse change compared to old exam.
[2018-02-28] MEDS ORDERED: HYDROmorphone 1 MG/ML 1 ML SYRINGE IVP STA (22:47)
[2018-02-28] MEDS ORDERED: diphenhydrAMINE 50 MG/ML 1 ML VIAL IVP STA (23:25)
[2018-02-28] MEDS ORDERED: FAMOTIDINE 20 MG/2 ML VIAL IV STA (23:25)
[2018-02-28] MEDS ORDERED: methylPREDNISolone SOD SUCCI 125 MG/2 ML VIAL IV STA (23:25)
--- NOTE | 2018-03-01 00:41 | CT ---
EXAMINATION TYPE: CT chest angio for PE DATE OF EXAM: 03/01/2018 COMPARISON: July 08, 2014 HISTORY: chest pain and SOB CT DLP: 607.2 mGycm Automated exposure control for dose reduction was used. CONTRAST: CT Chest for pulmonary embolism performed with with IV Contrast, patient injected with 85mL mL of Iso petty 370. FINDINGS: There are 3-D post processed images. Thoracic aorta is intact. There is no evidence of aneurysm or dissection. There is normal contrast op acification of the pulmonary arteries. There are no filling defect. There are no hilar masses. There is no mediastinal adenopathy. There are a few paratracheal lymph nodes measure less than 1 cm. Heart size is normal. The lungs are clear of infiltrate. There is no pleural effusion. There is no pn eumothorax. There is inferior vena cava filter noted. The bony thorax is intact. IMPRESSION: No evidence of pulmonary embolism. Negative exam. There is no adverse change compared to old exam.
[2018-03-01 01:13] VITALS: BP 100/64; PULSE 76; TEMP 98.6
== END 2018-03-01 01:10 | disposition home or self-care (01) ==
LOC: EC 20:03
DX: M79.604 Pain in right leg (principal); K21.9 Gastro-esophageal reflux disease without esophagitis; M19.90 Unspecified osteoarthritis, unspecified site; G47.30 Sleep apnea, unspecified; F41.0 Panic disorder [episodic paroxysmal anxiety]; F32.9 Major depressive disorder, single episode, unspecified; Z79.01 Long term (current) use of anticoagulants; Z79.899 Other long term (current) drug therapy; Z91.048 Other nonmedicinal substance allergy status; Z91.041 Radiographic dye allergy status; Z96.643 Presence of artificial hip joint, bilateral; Z87.891 Personal history of nicotine dependence; Z86.718 Personal history of other venous thrombosis and embolism; Z86.711 Personal history of pulmonary embolism; Z94.81 Bone marrow transplant status; Z85.47 Personal history of malignant neoplasm of testis
CPT/HCPCS: 36415; 85379; 80053; 85025; 71046; 71275; 99284; 96374; 96375 ×4; J2270; J1200; J2930; J1170; Q9967

== ENCOUNTER 2018-03-19 17:32 | Observation (INO) | payer MEDICARE, BC ==
[2018-03-19 18:22] LABS: Basophils % (A) 0 %; Eosinophils # (A) 0.1 k/uL (0-0.7); Eosinophils % (A) 1 %; HCT 41.1 % (39.0-53.0); HGB 14.4 gm/dL (13.0-17.5); Lymphocytes # (A) 1.5 k/uL (1.0-4.8); Lymphocytes % (A) 20 %; MCH 31.2 pg (25.0-35.0); MCHC 35.1 g/dL (31.0-37.0); MCV 88.9 fL (80.0-100.0); Mean Platelet Volume 7.3; Monocytes # (A) 0.4 k/uL (0-1.0); Monocytes % (A) 5 %; Neutrophils # (A) 5.4 k/uL (1.3-7.7); Neutrophils % (A) 72 %; Platelet Count 207 k/uL (150-450); RBC 4.62 m/uL (4.30-5.90); RDW 13.5 % (11.5-15.5); WBC 7.5 k/uL (3.8-10.6)
--- NOTE | 2018-03-19 18:22 | ED ---
Chest Pain HPI - General Chief Complaint: Chest Pain Stated Complaint: Upper epigastric pain Time Seen by Provider: 03/19/18 17:52 Source: patient, RN notes reviewed, old records reviewed Mode of arrival: EMS Limitations: no limitations - History of Present Illness Initial Comments: This is a 62-year-old male the ER for evaluation. This patient presents today for evaluation regards to chest pain shortness of breath associated with diaphoresis and shortness of breath and anxiety. Patient doesn't history of PE history of DVT. Patient is on blood thinners Xarelto. Patient also has history of high blood pressure and is history of anxiety anxiety attacks. No fevers no cough or congestion recent travel history no sick contacts. Patient is still having mild current pain MD Complaint: chest pain -: hour(s) Onset: during rest Pain Location: substernal, epigastric Pain Radiation: none Severity: mild Severity scale (1-10): 3 Quality: aching Improves With: nothing Worsens With: nothing Anginal Symptoms: nausea, diaphoresis, dyspnea Other Symptoms: palpitations Treatments Prior to Arrival: none - Related Data Home Medications Medication Instructions Recorded Confirmed Morphine Sulfate [Ms Contin] 15 mg PO Q8H 11/22/13 03/19/18 Omeprazole [PriLOSEC] 20 mg PO BID 11/22/13 03/19/18 Zolpidem [Ambien] 10 mg PO HS 11/22/13 03/19/18 clonazePAM [KlonoPIN] 0.5 mg PO TID PRN 11/22/13 03/19/18 Venlafaxine HCl [Effexor XR] 75 mg PO BID 07/06/14 03/19/18 Gemfibrozil [Lopid] 600 mg PO BID 11/05/16 03/19/18 Lisinopril [Zestril] 10 mg PO DAILY 11/05/16 03/19/18 sitaGLIPtin PHOS/metFORMIN HCL 1 tab PO BID 11/05/16 03/19/18 [Janumet 50-1,000 mg Tablet] Rivaroxaban [Xarelto] 20 mg PO DAILY 02/01/17 03/19/18 tiZANidine [Zanaflex] 4 mg PO Q12H 02/01/17 03/19/18 Cholecalciferol (Vitamin D3) 2,000 unit PO DAILY 03/19/18 03/19/18 [Vitamin D3] Multivitamins, Thera [Multivitamin 1 tab PO DAILY 03/19/18 03/19/18 (formulary)] Allergies Allergy/AdvReac Type Severity Reaction Status Date / Time adhesive tape Allergy Rash/Hives Verified 03/19/18 17:58 Iodinated Contrast- Oral and Allergy Rash/Hives Verified 03/19/18 17:58 IV Dye [Iodinated Contrast Media - IV Dye] Review of Systems ROS Statement: Those systems with pertinent positive or pertinent negative responses have been documented in the HPI. ROS Other: All systems not noted in ROS Statement are negative. EKG Findings - EKG Comments: EKG Findings:: EKG shows sinus rhythm rate of 79, IL 160, QRS 92, QTc 444 Past Medical History Past Medical History: Blood Disorder, Cancer, Deep Vein Thrombosis (DVT), GERD/ Reflux, Hyperlipidemia, Osteoarthritis (OA), Pulmonary Embolus (PE), Sleep Apnea /CPAP/BIPAP Additional Past Medical History / Comment(s): neuropathy, testicular ca HAD LYMPH NODES REMOVED- HAD CHEMO(LEFT HIM WITH NERVE DAMAGE FROM KNEES DOWN AND WEAKENED BONES IN HIPS PT REQUIRED TERRANCE HIP REPLACEMENTS) AND bone marrow transplant 2001 , HAS A BBB, GETS LYMPHEDEMA SINCE LYMPH NODE REMOVED, WEARS LT BRACE LOWER LEG. HASCLOTTING FACTOR DISORDER(PROTHROMBIN). KIDNEY STONES History of Any Multi-Drug Resistant Organisms: None Reported Past Surgical History: Back Surgery, Hernia Repair Additional Past Surgical History / Comment(s): filter for dvts ,TERRANCE INGUINAL HERNIA AND ADB HERNIA REPAIR, REMOVED TESTICULAR TUMOR/LYMPH. X2 BACK SX RODS IN PLACE FROM L4 THRU S1. HAD HALF HIS BLADDER REMOVED AT AGE 16 MONTHS REASON UNK, TERRANCE HIP REPLACEMENTS TERRANCE KNEES PATELLAR TENDON TRANSFER, RT ELBOW REMOVED BONE CHIP, RT SHOULDER ROTATOR CUFF AND CUT TOP OF THE BONE OFF,LT BREAST LUMP REMOVE WAS BENIGN. Past Anesthesia/Blood Transfusion Reactions: Motion Sickness Additional Past Anesthesia/Blood Transfusion Reaction / Comment(s): BLOOD TRANSFUSION IN PAST -NO COMPLICATIONS. MOTION SICKNESS/VERTIGO, CLAUSTERPHOBIA. Past Psychological History: Anxiety, Depression, Panic Disorder Smoking Status: Former smoker Past Alcohol Use History: None Reported Past Drug Use History: None Reported - Past Family History Father Additional Family Medical History / Comment(s): 1991 AT AGE 72 EMPHYSEMA Mother Family Medical History: Hyperlipidemia, Hypertension Additional Family Medical History / Comment(s): STILL ALIVE AT 88, HX MIGRAINES General Exam Limitations: no limitations General appearance: alert, in no apparent distress, anxious Head exam: Present: atraumatic, normocephalic, normal inspection Eye exam: Present: normal appearance, PERRL, EOMI. Absent: scleral icterus, conjunctival injection, periorbital swelling ENT exam: Present: normal exam, mucous membranes moist Neck exam: Present: normal inspection. Absent: tenderness, meningismus, lymphadenopathy Respiratory exam: Present: normal lung sounds bilaterally. Absent: respiratory distress, wheezes, rales, rhonchi, stridor Cardiovascular Exam: Present: regular rate, normal rhythm, normal heart sounds. Absent: systolic murmur, diastolic murmur, rubs, gallop, clicks GI/Abdominal exam: Present: soft, normal bowel sounds. Absent: distended, tenderness, guarding, rebound, rigid Extremities exam: Present: normal inspection, full ROM, normal capillary refill. Absent: tenderness, pedal edema, joint swelling, calf tenderness Back exam: Present: normal inspection Neurological exam: Present: alert, oriented X3, CN II-XII intact Psychiatric exam: Present: normal affect, normal mood Skin exam: Present: warm, dry, intact, normal color. Absent: rash Course Vital Signs 03/19/18 03/19/18 03/19/18 17:40 17:42 18:00 Temperature 98.2 F Pulse Rate 82 73 Respiratory 20 18 16 Rate Blood Pressure 135/83 135/83 O2 Sat by Pulse 97 96 Oximetry 03/19/18 03/19/18 03/19/18 18:29 18:30 18:50 Temperature Pulse Rate 75 75 Respiratory 16 18 18 Rate Blood Pressure 120/78 120/78 O2 Sat by Pulse 95 95 Oximetry 03/19/18 03/19/18 19:17 22:09 Temperature 98.3 F Pulse Rate 77 79 Respiratory 18 18 Rate Blood Pressure 115/80 126/84 O2 Sat by Pulse 96 96 Oximetry - Reevaluation(s) Reevaluation #1: 03/19/18 19:03 Medical records reviewed Reevaluation #2: 03/19/18 22:46 Patient is currently having persistent chest pain Chest Pain MDM - MDM 62 male the ER for evaluation patient presents today for evaluation of chest pain history of DVT or blood clots, computed tomography scan is negative labwork is normal EKG is normal troponin is negative. Patient is continuing to have persistent substernal chest pain. Patient be admitted for cardiology observation Critical Care Time Critical Care Time: Yes Total Critical Care Time: 31 Disposition Clinical Impression: Chest pain Disposition: ADMITTED IP TO THIS HOSP Condition: Undetermined Instructions: Chest Pain (ED) Referrals: Vivien Meneses MD [Primary Care Provider] - 1-2 days
[2018-03-19 18:30] LABS: Albumin 4.4 g/dL (3.5-5.0); Calcium 9.4 mg/dL (8.4-10.2); Magnesium 1.8 mg/dL (1.6-2.3); Potassium 4.4 mmol/L (3.5-5.1); Total Bilirubin 0.5 mg/dL (0.2-1.3); Total Protein 7.1 g/dL (6.3-8.2)
[2018-03-19 18:34] LABS: Creatine Kinase 137 U/L (55-170)
[2018-03-19 18:37] LABS: INR 1.2 (<1.2); Partial Thromboplastin Time 30.3 sec (22.0-30.0); Prothrombin Time 12.6 sec (9.0-12.0)
[2018-03-19 18:47] LABS: Creatine Kinase MB 1.8 ng/mL (0.0-2.4); Troponin I <0.012 ng/mL (0.000-0.034)
--- NOTE | 2018-03-19 20:40 | XR ---
EXAMINATION TYPE: XR chest 2V DATE OF EXAM: 03/19/2018 COMPARISON: 02/28/2018 INDICATION: Pain TECHNIQUE: Frontal and lateral views of the chest are obtained. FINDINGS: The heart size is normal. The pulmonary vasculature is normal. The lungs are clear. IMPRESSION: 1. No acute pulmonary process.
[2018-03-19] MEDS ORDERED: diphenhydrAMINE 50 MG/ML 1 ML VIAL IVP STA (21:05)
[2018-03-19] MEDS ORDERED: FAMOTIDINE 20 MG/2 ML VIAL IV STA (21:05)
[2018-03-19] MEDS ORDERED: methylPREDNISolone SOD SUCCI 125 MG/2 ML VIAL IV STA (21:05)
--- NOTE | 2018-03-19 21:50 | CT ---
CT CHEST FOR PULMONARY EMBOLISM. EXAMINATION TYPE: CT angio chest DATE OF EXAM: 03/19/2018 INDICATION: chest pain, hx of PE CT DLP: 596.8 mGycm, Automated exposure control for dose reduction was used. CONTRAST: Patient injected with 88 mL of Isovue 370. COMPARISON: 03/18/2016 TECHNIQUE: CT of the chest is performed on a spiral scan at 2 mm thick sections. Study is performed with intravenous contrast timed for evaluation for pulmonary embolism. This will limit additional po rtions of the evaluation. 3-D MIP images reconstructed by the technologist are reviewed on the compu ter in the coronal and sagittal planes. FINDINGS: No persistent filling defects are evident to suggest an acute pulmonary embolism. No mediastinal or hilar adenopathy enlarged by CT criteria is evident. The ascending aorta diameter at the level of the main pulmonary artery is 3.6 cm. The main pulmonary artery diameter at the bifur cation is 3.0 cm. Lung windows are clear. Limited CT section through the upper abdomen. Filter is within the inferior vena cava. Mild fatty inf iltration liver is present. Abdomen appears otherwise unremarkable. IMPRESSIONS: 1. No acute pulmonary embolism.
[2018-03-19] MEDS ORDERED: NITROGLYCERIN SL TABS 0.4 MG TAB SUBLINGUAL PRN (22:44)
[2018-03-19] MEDS ORDERED: ASPIRIN 81 MG PO STA (22:44)
[2018-03-19] MEDS: SODIUM CHLORIDE 0.9% 1,000 ML IV SCH (23:20)
[2018-03-20 00:07] VITALS: BMI 33.3
[2018-03-20 00:18] LABS: Glucose,Whole Blood 138 mg/dL (75-99)
[2018-03-20 00:36] LABS: Creatine Kinase 127 U/L (55-170)
[2018-03-20] MEDS ORDERED: clonazePAM 0.5 MG TAB PO PRN (00:40)
[2018-03-20 00:48] LABS: Creatine Kinase MB 1.6 ng/mL (0.0-2.4); Troponin I <0.012 ng/mL (0.000-0.034)
[2018-03-20] MEDS: MORPHINE SULFATE ER 15 MG TABLET PO SCH ×2 (01:00→08:47)
[2018-03-20] MEDS ORDERED: ZOLPIDEM 10 MG TAB PO SCH (01:00)
[2018-03-20] MEDS: tiZANidine 4 MG TAB PO SCH ×2 (01:00→08:48)
[2018-03-20 06:42] LABS: Glucose,Whole Blood 209 mg/dL (75-99)
[2018-03-20 07:50] VITALS: RESP 18
[2018-03-20 07:56] LABS: Cholesterol 197 mg/dL (<200); HDL Cholesterol 39 mg/dL (40-60); LDL Cholesterol,Calculated 132 mg/dL (0-99); Triglycerides 131 mg/dL (<150)
[2018-03-20 08:05] LABS: Creatine Kinase 98 U/L (55-170)
[2018-03-20 08:19] LABS: Creatine Kinase MB 1.4 ng/mL (0.0-2.4); Troponin I <0.012 ng/mL (0.000-0.034)
[2018-03-20] MEDS ORDERED: PANTOPRAZOLE 40 MG TABLET PO SCH (08:30)
[2018-03-20] MEDS: INSULIN ASPART 100 UNIT/ML 1 ML 10 ML VIAL SQ SCH ×2 (08:48→12:14)
[2018-03-20] MEDS: SODIUM CHLORIDE 0.9% 1,000 ML IV SCH (08:53)
[2018-03-20] MEDS ORDERED: RIVAROXABAN 20 MG TAB PO SCH (09:00)
[2018-03-20] MEDS ORDERED: VENLAFAXINE HCL ER 75 MG CAP PO SCH (09:00)
[2018-03-20] MEDS ORDERED: ATORVASTATIN 80 MG TAB PO SCH (09:00)
[2018-03-20] MEDS ORDERED: ASPIRIN 325 MG TAB PO SCH (09:00)
[2018-03-20] MEDS ORDERED: METOPROLOL TARTRATE 25 MG TAB PO SCH (09:00)
[2018-03-20 11:35] VITALS: BP 138/77; PULSE 89; TEMP 97.6
--- NOTE | 2018-03-20 11:42 | P.CRDCN ---
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 We have been asked to see him in consultation for symptoms of chest discomfort. He follows with a slip cover estimator Dr. Meade out of town. He denies history of coronary artery disease. Starting on he felt a burning nagging pain in the epigastric region. It remained constant all day with no radiation or associated symptoms. Then on Thursday the area of discomfort became larger but still no radiation or associated symptoms. Last night it again increased in size. Still no radiation or associated symptoms. Ultimately the pain in the epigastric region felt. About the size of a quarter and was continuing to be described as a burning aching sensation. On arrival to the emergency department he was given Protonix and his pain subsided. He states he has undergone an EGD in the past but has been some time. He missed a scheduled appointment in the fall of last year. EKG reveals sinus mechanism with nonspecific abnormalities noted. Chest x-ray is negative for an acute cardiopulmonary process. CT angiogram negative for pulmonary embolism. Inferior vena cava noted to have a chemical filter in place. Laboratory data reviewed, WBC 7.5, hemoglobin 14.4, platelets 207, sodium 142, potassium 4.4, creatinine 1.04, magnesium 1.8, cardiac enzymes negative 3, LDL 132, HDL 39. NT proBNP 31. Current cardiac medications include Lopid 600 mg twice a day, lisinopril 10 mg daily, Xarelto 20 mg daily. Most recent stress test performed 2014 was a dobutamine stress echocardiogram is negative for stress-induced cardiac ischemia. Most recent echocardiogram performed 2014 reveals preserved left ventricular systolic function. Mild pulmonary hypertension and mild TR. At the time of my exam: CONSTITUTIONAL: Denies fever. Denies chills. EYES: Denies blurred vision. Denies vision changes. Denies eye pain. EARS, NOSE, MOUTH & THROAT: Denies headache. Denies sore throat. Denies ear pain. CARDIOVASCULAR: Denies chest pain. Denies shortness of breath. Denies orthopnea. Denies PND. Denies palpitations. RESPIRATORY: Denies cough. GASTROINTESTINAL: Denies abdominal pain. Denies diarrhea. Denies constipation. Denies nausea. Denies vomiting. MUSCULOSKELETAL: Denies myalgias. INTEGUMENTARY: Denies pruitis. Denies rash. NEUROLOGIC: Denies numbness. Denies tingling. Denies weakness. PSYCHIATRIC: Denies anxiety. Denies depression. ENDOCRINE: Denies fatigue. Denies weight change. Denies polydipsia. Denies polyurina. GENITOURINARY: Denies burning, hematuria or urgency with micturation. HEMATOLOGIC: Denies history of anemia. Denies bleeding. Blood pressure 120/73 heart rate 81 afebrile maintaining oxygen saturation on room air GENERAL: This is a 62-year-old male in no apparent distress at the time of my examination. HEENT: Head is atraumatic, normocephalic. Pupils are equal, round. Sclerae anicteric. Conjunctivae are clear. Mucous membranes of the mouth are moist. Neck is supple. There is no jugular venous distention. No carotid bruit is heard. LUNGS: Clear to auscultation no wheezes, rales or rhonchi. No chest wall tenderness is noted on palpation or with deep breathing. HEART: Regular rate and rhythm without murmurs, rubs or gallops. S1 and S2 heard. ABDOMEN: Soft, nontender. Bowel sounds are heard. No organomegaly noted. EXTREMITIES: No evidence of peripheral edema and no calf tenderness noted. VASCULAR: Radial and dorsalis pedis pulses palpated, no evidence of clubbing. NEUROLOGIC: Patient is awake, alert and oriented x3. ASSESSMENT Epigastric discomfort, atypical for angina. Acute coronary event has been ruled out with no EKG evidence of ischemia and negative cardiac enzymes. Hypertension Dyslipidemia Diabetes mellitus History of gastroesophageal reflux disease Chronic recurrent DVT and PE on long-term anticoagulation PLAN An acute coronary event has been ruled out with no EKG evidence of ischemia negative cardiac enzymes. Obtain 2-D echocardiogram and Doppler study to assess cardiac structure and function. Initiate the patient on Protonix and assess for ongoing symptoms of epigastric discomfort after eating. Upon discharge follow-up with his primary slip cover estimator. Thank you kindly for this consultation. The above impression and plan of care have been discussed and directed by the signing physician. Camille Cox, nurse practitioner, acting as scribe for signing physician. Past Medical History Past Medical History: Blood Disorder, Cancer, Diabetes Mellitus, Deep Vein Thrombosis (DVT), GERD/Reflux, Hyperlipidemia, Osteoarthritis (OA), Pulmonary Embolus (PE), Sleep Apnea/CPAP/BIPAP Additional Past Medical History / Comment(s): neuropathy, testicular ca HAD LYMPH NODES REMOVED- HAD CHEMO(LEFT HIM WITH NERVE DAMAGE FROM KNEES DOWN AND WEAKENED BONES IN HIPS PT REQUIRED TERRANCE HIP REPLACEMENTS) AND bone marrow transplant 2001 , HAS A BBB, GETS LYMPHEDEMA SINCE LYMPH NODE REMOVED, WEARS LT BRACE LOWER LEG. HASCLOTTING FACTOR DISORDER(PROTHROMBIN). KIDNEY STONES History of Any Multi-Drug Resistant Organisms: None Reported Past Surgical History: Back Surgery, Hernia Repair Additional Past Surgical History / Comment(s): filter for dvts ,TERRANCE INGUINAL HERNIA AND ADB HERNIA REPAIR, REMOVED TESTICULAR TUMOR/LYMPH. X2 BACK SX RODS IN PLACE FROM L4 THRU S1. HAD HALF HIS BLADDER REMOVED AT AGE 16 MONTHS REASON UNK, TERRANCE HIP REPLACEMENTS TERRANCE KNEES PATELLAR TENDON TRANSFER, RT ELBOW REMOVED BONE CHIP, RT SHOULDER ROTATOR CUFF AND CUT TOP OF THE BONE OFF,LT BREAST LUMP REMOVE WAS BENIGN. Past Anesthesia/Blood Transfusion Reactions: Motion Sickness Additional Past Anesthesia/Blood Transfusion Reaction / Comment(s): BLOOD TRANSFUSION IN PAST -NO COMPLICATIONS. MOTION SICKNESS/VERTIGO, CLAUSTERPHOBIA. Past Psychological History: Anxiety, Depression, Panic Disorder Smoking Status: Former smoker Past Alcohol Use History: None Reported Additional Past Alcohol Use History / Comment(s): STARTED SMOKING AT AGE 11 OR 12, NEVER OVER 1 PPD, QUIT IN 1998 Past Drug Use History: None Reported - Past Family History Father Additional Family Medical History / Comment(s): 1991 AT AGE 72 EMPHYSEMA Mother Family Medical History: Hyperlipidemia, Hypertension Additional Family Medical History / Comment(s): STILL ALIVE AT 88, HX MIGRAINES Medications and Allergies Home Medications Medication Instructions Recorded Confirmed Type Morphine Sulfate [Ms Contin] 15 mg PO Q8H 11/22/13 03/19/18 History Omeprazole [PriLOSEC] 20 mg PO BID 11/22/13 03/19/18 History Zolpidem [Ambien] 10 mg PO HS 11/22/13 03/19/18 History clonazePAM [KlonoPIN] 0.5 mg PO TID PRN 11/22/13 03/19/18 History Venlafaxine HCl [Effexor XR] 75 mg PO BID 07/06/14 03/19/18 History Gemfibrozil [Lopid] 600 mg PO BID 11/05/16 03/19/18 History Lisinopril [Zestril] 10 mg PO DAILY 11/05/16 03/19/18 History sitaGLIPtin PHOS/metFORMIN HCL 1 tab PO BID 11/05/16 03/19/18 History [Janumet 50-1,000 mg Tablet] Rivaroxaban [Xarelto] 20 mg PO DAILY 02/01/17 03/19/18 History tiZANidine [Zanaflex] 4 mg PO Q12H 02/01/17 03/19/18 History Cholecalciferol (Vitamin D3) 2,000 unit PO DAILY 03/19/18 03/19/18 History [Vitamin D3] Multivitamins, Thera [Multivitamin 1 tab PO DAILY 03/19/18 03/19/18 History (formulary)] Allergies Allergy/AdvReac Type Severity Reaction Status Date / Time adhesive tape Allergy Rash/Hives Verified 03/19/18 17:58 Iodinated Contrast- Oral and Allergy Rash/Hives Verified 03/19/18 17:58 IV Dye [Iodinated Contrast Media - IV Dye] Physical Exam Vitals: Vital Signs Temp Pulse Pulse Resp BP BP BP 03/20/18 07:20 97.4 F L 81 18 120/73 03/20/18 04:00 97.6 F 80 15 117/67 03/20/18 00:00 98.1 F 85 15 131/77 03/19/18 23:15 89 18 122/75 03/19/18 22:09 98.3 F 79 18 126/84 03/19/18 19:17 77 18 115/80 03/19/18 18:50 75 18 120/78 03/19/18 18:30 75 18 120/78 03/19/18 18:29 16 03/19/18 18:00 73 16 135/83 03/19/18 17:42 98.2 F 82 18 135/83 03/19/18 17:40 20 Pulse Ox 03/20/18 07:20 94 L 03/20/18 04:00 96 03/20/18 00:00 97 03/19/18 23:15 95 03/19/18 22:09 96 03/19/18 19:17 96 03/19/18 18:50 95 03/19/18 18:30 95 03/19/18 18:29 03/19/18 18:00 96 03/19/18 17:42 97 03/19/18 17:40 Intake and Output 03/19/18 03/20/18 03/20/18 22:59 06:59 14:59 Other: Voiding Method Toilet # Voids 2 3 Weight 117.934 kg 117.9 kg Results 03/19/18 17:50 03/19/18 17:50 Cardiac Enzymes 03/19/18 03/19/18 03/19/18 Range/Units 17:50 17:50 23:37 AST 27 (17-59) U/L CK-MB (CK-2) 1.8 1.6 (0.0-2.4) ng/mL Troponin I <0.012 <0.012 (0.000-0.034) ng/mL Coagulation 03/19/18 Range/Units 17:50 PT 12.6 H (9.0-12.0) sec APTT 30.3 H (22.0-30.0) sec Lipids 03/20/18 Range/Units 06:16 Triglycerides 131 (<150) mg/dL Cholesterol 197 (<200) mg/dL HDL Cholesterol 39 L (40-60) mg/dL CBC 03/19/18 Range/Units 17:50 WBC 7.5 (3.8-10.6) k/uL RBC 4.62 (4.30-5.90) m/uL Hgb 14.4 (13.0-17.5) gm/dL Hct 41.1 (39.0-53.0) % Plt Count 207 (150-450) k/uL Comprehensive Metabolic Panel 03/19/18 Range/Units 17:50 Sodium 142 (137-145) mmol/L Potassium 4.4 (3.5-5.1) mmol/L Chloride 106 (98-107) mmol/L Carbon Dioxide 28 (22-30) mmol/L BUN 18 (9-20) mg/dL Creatinine 1.04 (0.66-1.25) mg/dL Glucose 101 H (74-99) mg/dL Calcium 9.4 (8.4-10.2) mg/dL AST 27 (17-59) U/L ALT 38 (21-72) U/L Alkaline Phosphatase 82 (38-126) U/L Total Protein 7.1 (6.3-8.2) g/dL Albumin 4.4 (3.5-5.0) g/dL Current Medications Generic Name Dose Route Start Last Admin Trade Name Freq PRN Reason Stop Dose Admin Aspirin 325 mg 03/20/18 09:00 Aspirin PO DAILY [facility] Atorvastatin Calcium 80 mg 03/20/18 09:00 Lipitor PO DAILY [facility] Clonazepam 0.5 mg 03/20/18 00:40 Klonopin PO TID PRN Anxiety Sodium Chloride 1,000 mls @ 100 mls/hr 03/19/18 22:45 03/19/18 23:20 Saline 0.9% IV 100 mls/hr .Q10H [facility] Administration Insulin Aspart 0 unit 03/20/18 07:30 Novolog SQ ACHS [facility] Protocol Metoprolol Tartrate 25 mg 03/20/18 09:00 Lopressor PO BID [facility] Morphine Sulfate 15 mg 03/20/18 00:45 03/20/18 01:00 Ms Contin PO 15 mg Q8H [facility] Administration Nitroglycerin 0.4 mg 03/19/18 22:44 Nitrostat SUBLINGUAL Q5M PRN Chest Pain Rivaroxaban 20 mg 03/20/18 09:00 Xarelto PO DAILY [facility] Tizanidine HCl 4 mg 03/20/18 00:45 03/20/18 01:00 Zanaflex PO 4 mg Q12HR [facility] Administration Venlafaxine HCl 75 mg 03/20/18 09:00 Effexor Xr PO BID [facility] Zolpidem Tartrate 10 mg 03/20/18 01:00 03/20/18 01:30 Ambien PO 10 mg HS [facility] Administration Intake and Output 03/19/18 03/20/18 03/20/18 22:59 06:59 14:59 Other: Voiding Method Toilet # Voids 2 3 Weight 117.934 kg 117.9 kg 03/19/18 17:50 03/19/18 17:50
[2018-03-20 11:45] LABS: Glucose,Whole Blood 167 mg/dL (75-99)
--- NOTE | 2018-03-20 12:53 | P.DS ---
Providers Date of admission: 03/19/18 22:44 Attending physician: Amanda Gerber Consults: 03/19/18 22:44 Consult Physician Urgent Consulting Provider: Ken Bullard Consult Reason/Comments: cp Do you want consulting provider notified?: Yes Primary care physician: Vivien Meneses Hospital Course: As mentioned in my HPI Patient Condition at Discharge: Undetermined Plan - Discharge Summary New Discharge Prescriptions: New Simethicone 80 mg PO AC-TID #30 tab.chew No Action Morphine Sulfate [Ms Contin] 15 mg PO Q8H Zolpidem [Ambien] 10 mg PO HS clonazePAM [KlonoPIN] 0.5 mg PO TID PRN PRN Reason: Anxiety Omeprazole [PriLOSEC] 20 mg PO BID Venlafaxine HCl [Effexor XR] 75 mg PO BID sitaGLIPtin PHOS/metFORMIN HCL [Janumet 50-1,000 mg Tablet] 1 tab PO BID Lisinopril [Zestril] 10 mg PO DAILY Gemfibrozil [Lopid] 600 mg PO BID tiZANidine [Zanaflex] 4 mg PO Q12H Rivaroxaban [Xarelto] 20 mg PO DAILY Multivitamins, Thera [Multivitamin (formulary)] 1 tab PO DAILY Cholecalciferol (Vitamin D3) [Vitamin D3] 2,000 unit PO DAILY Discharge Medication List Morphine Sulfate [Ms Contin] 15 mg PO Q8H 11/22/13 [History] Omeprazole [PriLOSEC] 20 mg PO BID 11/22/13 [History] Zolpidem [Ambien] 10 mg PO HS 11/22/13 [History] clonazePAM [KlonoPIN] 0.5 mg PO TID PRN 11/22/13 [History] Venlafaxine HCl [Effexor XR] 75 mg PO BID 07/06/14 [History] Gemfibrozil [Lopid] 600 mg PO BID 11/05/16 [History] Lisinopril [Zestril] 10 mg PO DAILY 11/05/16 [History] sitaGLIPtin PHOS/metFORMIN HCL [Janumet 50-1,000 mg Tablet] 1 tab PO BID [History] Rivaroxaban [Xarelto] 20 mg PO DAILY 02/01/17 [History] tiZANidine [Zanaflex] 4 mg PO Q12H 02/01/17 [History] Cholecalciferol (Vitamin D3) [Vitamin D3] 2,000 unit PO DAILY 03/19/18 [History] Multivitamins, Thera [Multivitamin (formulary)] 1 tab PO DAILY 03/19/18 [History ] Simethicone 80 mg PO AC-TID #30 tab.chew 03/20/18 [Rx] Follow up Appointment(s)/Referral(s): Vivien Meneses MD [Primary Care Provider] - 3 Days Patient Instructions/Handouts: Chest Pain (ED) Discharge Disposition: HOME SELF-CARE
--- NOTE | 2018-03-20 12:53 | P.HPIM ---
History of Present Illness 62-year-old pleasant gentleman came in with complaints of epigastric abdominal pain dull ache moderate pain 8/10 in severity now 4/10 in severity size of a small ball in there nonradiating. Not associated with food nonpleuritic patient was a valid by cardiology patient had a CT of the chest rule out pulmonary embolism patient doesn't have any pneumonia patient was ruled out acute current syndromes cardiology doesn't believe it's a cardiac chest pain. Patient is already on Prilosec twice a day patient's symptomology is not typical for a gastritis possibly cannot be ruled out because of which I'll let discharge him on simethicone for 10 more days along with the Prilosec and if his symptoms doesn't improve may need further evaluation with upper GI endoscopy at that time. Patient presently is feeling well his pain is 4 status 10 in severity nonradiating patient had is on anticoagulation for DVT's in the past. She still has gallbladder his symptomology is not consistent with the cholelithiasis or cholecystitis patient doesn't have any right upper quadrant pain patient is able to tolerate diet well. Review of Systems REVIEW OF SYSTEMS: CONSTITUTIONAL: No fever, no malaise, no fatigue. HEENT: No recent visual problems or hearing problems. Denied any sore throat. CARDIOVASCULAR: No orthopnea, PND, no palpitations, no syncope. PULMONARY: No shortness of breath, no cough, no hemoptysis. GASTROINTESTINAL: No diarrhea, no nausea, no vomiting, no abdominal pain. NEUROLOGICAL: No headaches, no weakness, no numbness. HEMATOLOGICAL: Denies any bleeding or petechiae. GENITOURINARY: Denies any burning micturition, frequency, or urgency. MUSCULOSKELETAL/RHEUMATOLOGICAL: Denies any joint pain, swelling, or any muscle pain. ENDOCRINE: Denies any polyuria or polydipsia. The rest of the 14-point review of systems is negative. Past Medical History Past Medical History: Blood Disorder, Cancer, Diabetes Mellitus, Deep Vein Thrombosis (DVT), GERD/Reflux, Hyperlipidemia, Osteoarthritis (OA), Pulmonary Embolus (PE), Sleep Apnea/CPAP/BIPAP Additional Past Medical History / Comment(s): neuropathy, testicular ca HAD LYMPH NODES REMOVED- HAD CHEMO(LEFT HIM WITH NERVE DAMAGE FROM KNEES DOWN AND WEAKENED BONES IN HIPS PT REQUIRED TERRANCE HIP REPLACEMENTS) AND bone marrow transplant 2001 , HAS A BBB, GETS LYMPHEDEMA SINCE LYMPH NODE REMOVED, WEARS LT BRACE LOWER LEG. HASCLOTTING FACTOR DISORDER(PROTHROMBIN). KIDNEY STONES History of Any Multi-Drug Resistant Organisms: None Reported Past Surgical History: Back Surgery, Hernia Repair Additional Past Surgical History / Comment(s): filter for dvts ,TERRANCE INGUINAL HERNIA AND ADB HERNIA REPAIR, REMOVED TESTICULAR TUMOR/LYMPH. X2 BACK SX RODS IN PLACE FROM L4 THRU S1. HAD HALF HIS BLADDER REMOVED AT AGE 16 MONTHS REASON UNK, TERRANCE HIP REPLACEMENTS TERRANCE KNEES PATELLAR TENDON TRANSFER, RT ELBOW REMOVED BONE CHIP, RT SHOULDER ROTATOR CUFF AND CUT TOP OF THE BONE OFF,LT BREAST LUMP REMOVE WAS BENIGN. Past Anesthesia/Blood Transfusion Reactions: Motion Sickness Additional Past Anesthesia/Blood Transfusion Reaction / Comment(s): BLOOD TRANSFUSION IN PAST -NO COMPLICATIONS. MOTION SICKNESS/VERTIGO, CLAUSTERPHOBIA. Past Psychological History: Anxiety, Depression, Panic Disorder Smoking Status: Former smoker Past Alcohol Use History: None Reported Additional Past Alcohol Use History / Comment(s): STARTED SMOKING AT AGE 11 OR 12, NEVER OVER 1 PPD, QUIT IN 1998 Past Drug Use History: None Reported - Past Family History Father Additional Family Medical History / Comment(s): 1991 AT AGE 72 EMPHYSEMA Mother Family Medical History: Hyperlipidemia, Hypertension Additional Family Medical History / Comment(s): STILL ALIVE AT 88, HX MIGRAINES Medications and Allergies Home Medications Medication Instructions Recorded Confirmed Type Morphine Sulfate [Ms Contin] 15 mg PO Q8H 11/22/13 03/19/18 History Omeprazole [PriLOSEC] 20 mg PO BID 11/22/13 03/19/18 History Zolpidem [Ambien] 10 mg PO HS 11/22/13 03/19/18 History clonazePAM [KlonoPIN] 0.5 mg PO TID PRN 11/22/13 03/19/18 History Venlafaxine HCl [Effexor XR] 75 mg PO BID 07/06/14 03/19/18 History Gemfibrozil [Lopid] 600 mg PO BID 11/05/16 03/19/18 History Lisinopril [Zestril] 10 mg PO DAILY 11/05/16 03/19/18 History sitaGLIPtin PHOS/metFORMIN HCL 1 tab PO BID 11/05/16 03/19/18 History [Janumet 50-1,000 mg Tablet] Rivaroxaban [Xarelto] 20 mg PO DAILY 02/01/17 03/19/18 History tiZANidine [Zanaflex] 4 mg PO Q12H 02/01/17 03/19/18 History Cholecalciferol (Vitamin D3) 2,000 unit PO DAILY 03/19/18 03/19/18 History [Vitamin D3] Multivitamins, Thera [Multivitamin 1 tab PO DAILY 03/19/18 03/19/18 History (formulary)] Simethicone 80 mg PO AC-TID #30 tab.chew 03/20/18 Rx Allergies Allergy/AdvReac Type Severity Reaction Status Date / Time adhesive tape Allergy Rash/Hives Verified 03/19/18 17:58 Iodinated Contrast- Oral and Allergy Rash/Hives Verified 03/19/18 17:58 IV Dye [Iodinated Contrast Media - IV Dye] Physical Exam Vitals: Vital Signs Temp Pulse Pulse Resp BP BP BP 03/20/18 11:34 97.6 F 89 18 138/77 03/20/18 07:20 97.4 F L 81 18 120/73 03/20/18 04:00 97.6 F 80 15 117/67 03/20/18 00:00 98.1 F 85 15 131/77 03/19/18 23:15 89 18 122/75 03/19/18 22:09 98.3 F 79 18 126/84 03/19/18 19:17 77 18 115/80 03/19/18 18:50 75 18 120/78 03/19/18 18:30 75 18 120/78 03/19/18 18:29 16 03/19/18 18:00 73 16 135/83 03/19/18 17:42 98.2 F 82 18 135/83 03/19/18 17:40 20 Pulse Ox 03/20/18 11:34 96 03/20/18 07:20 94 L 03/20/18 04:00 96 03/20/18 00:00 97 03/19/18 23:15 95 03/19/18 22:09 96 03/19/18 19:17 96 03/19/18 18:50 95 03/19/18 18:30 95 03/19/18 18:29 03/19/18 18:00 96 03/19/18 17:42 97 03/19/18 17:40 Intake and Output 03/19/18 03/20/18 03/20/18 22:59 06:59 14:59 Intake Total 240 Balance 240 Intake: Oral 240 Other: Voiding Method Toilet Toilet # Voids 2 3 Weight 117.934 kg 117.9 kg PHYSICAL EXAMINATION: GENERAL: The patient is alert and oriented x3, not in any acute distress. Well developed, well nourished. HEENT: Pupils are round and equally reacting to light. EOMI. No scleral icterus. No conjunctival pallor. Normocephalic, atraumatic. No pharyngeal erythema. No thyromegaly. CARDIOVASCULAR: S1 and S2 present. No murmurs, rubs, or gallops. PULMONARY: Chest is clear to auscultation, no wheezing or crackles. ABDOMEN: Soft, nontender, nondistended, normoactive bowel sounds. No palpable organomegaly. MUSCULOSKELETAL: No joint swelling or deformity. EXTREMITIES: No cyanosis, clubbing, or pedal edema. NEUROLOGICAL: Gross neurological examination did not reveal any focal deficits. SKIN: No rashes. Results CBC & Chem 7: 03/19/18 17:50 03/19/18 17:50 Labs: Abnormal Lab Results - Last 24 Hours (Table) 03/19/18 03/19/18 03/20/18 Range/Units 17:50 17:50 00:16 PT 12.6 H (9.0-12.0) sec INR 1.2 H (<1.2) APTT 30.3 H (22.0-30.0) sec Glucose 101 H (74-99) mg/dL POC Glucose (mg/dL) 138 H (75-99) mg/dL LDL Cholesterol, Calc (0-99) mg/dL HDL Cholesterol (40-60) mg/dL 03/20/18 03/20/18 03/20/18 Range/Units 06:16 06:40 11:44 PT (9.0-12.0) sec INR (<1.2) APTT (22.0-30.0) sec Glucose (74-99) mg/dL POC Glucose (mg/dL) 209 H 167 H (75-99) mg/dL LDL Cholesterol, Calc 132 H (0-99) mg/dL HDL Cholesterol 39 L (40-60) mg/dL Thrombosis Risk Factor Assmnt - Choose All That Apply Each Factor Represents 1 point: Obesity (BMI >25) Each Risk Factor Represents 2 Points: Age 61-74 years Each Risk Factor Represents 3 Points: History of DVT/PE Thrombosis Risk Factor Assessment Total Risk Factor Score: 6 Thrombosis Risk Factor Assessment Level: High Risk Assessment and Plan Plan: 1 chest pain: Rule out acute syndromes possibly related to gastritis or gastroesophageal reflux disease and patient will be discharged on simethicone as mentioned above patient will continue his Prilosec. -History of DVT in the past patient is anti-correlation which she'll continue -Hyperlipidemia -Sleep apnea continue CPAP machine -Type 2 diabetes mellitus: Patient will continue his home regimen Patient will be discharged today to follow with Dr. Meneses primary care physician as an outpatient in about 3-7 days
--- NOTE | 2018-03-20 13:37 | ECHOF ---
Referral Reason: MEASUREMENTS -------- HEIGHT: 188.0 cm WEIGHT: 117.5 kg BP: 120/73 RVIDd: 3.0 cm (< 3.3) IVSd: 1.2 cm (0.6 - 1.1) LVIDd: 4.6 cm (3.9 - 5.3) LVPWd: 1.3 cm (0.6 - 1.1) IVSs: 1.5 cm LVIDs: 2.9 cm LVPWs: 1.6 cm LA Diam: 3.5 cm (2.7 - 3.8) LAESV Index (A-L): 18.13 ml/m Ao Diam: 3.2 cm (2.0 - 3.7) AV Cusp: 2.4 cm (1.5 - 2.6) MV EXCURSION: 14.273 mm (> 18.000) MV EF SLOPE: 37 mm/s (70 - 150) EPSS: 0.6 cm MV E Hunter: 0.80 m/s MV DecT: 273 ms MV A Hunter: 1.11 m/s MV E/A Ratio: 0.72 RAP: 5.00 mmHg RVSP: 36.80 mmHg FINDINGS -------- Sinus rhythm. This was a technically adequate study. The left ventricular size is normal. There is mild concentric left ventricular hypertrophy. Overa ll left ventricular systolic function is normal with, an EF between 60 - 65 %. The right ventricle is normal in size. Normal LA size by volume 22+/-6 ml/m2. The right atrium is normal in size. The aortic valve is trileaflet and appears structurally normal. The mitral valve is normal. Mild tricuspid regurgitation present. There is mild pulmonary hypertension. The right ventricular systolic pressure, as measured by Doppler, is 36.80mmHg. There is no pulmonic regurgitation present. The aortic root size is normal. IVC Not well visulized. There is no pericardial effusion. CONCLUSIONS -------- 1. Sinus rhythm. 2. This was a technically adequate study. 3. The left ventricular size is normal. 4. There is mild concentric left ventricular hypertrophy. 5. Overall left ventricular systolic function is normal with, an EF between 60 - 65 %. 6. The right ventricle is normal in size. 7. Normal LA size by volume 22+/-6 ml/m2. 8. The right atrium is normal in size. 9. The aortic valve is trileaflet and appears structurally normal. 10. The mitral valve is normal. 11. Mild tricuspid regurgitation present. 12. There is mild pulmonary hypertension. 13. The right ventricular systolic pressure, as measured by Doppler, is 36.80mmHg. 14. There is no pulmonic regurgitation present. 15. The aortic root size is normal. 16. IVC Not well visulized. 17. There is no pericardial effusion. FACULTY DEAN: Ade Melo RDCS
[2018-03-20 13:43] LABS: Hemoglobin A1C 6.2 % (4.0-6.0)
== END 2018-03-20 13:53 | disposition home or self-care (01) ==
LOC: EC 17:32 → 1SOBS 22:44
PROVIDERS: ADMIT Hospitalist; ATTEND Hospitalist
DX: R07.89 Other chest pain (principal); R10.13 Epigastric pain; R06.02 Shortness of breath; R61 Generalized hyperhidrosis; K21.9 Gastro-esophageal reflux disease without esophagitis; I10 Essential (primary) hypertension; E78.5 Hyperlipidemia, unspecified; E11.42 Type 2 diabetes mellitus with diabetic polyneuropathy; D68.9 Coagulation defect, unspecified; I89.0 Lymphedema, not elsewhere classified; G47.30 Sleep apnea, unspecified; M19.90 Unspecified osteoarthritis, unspecified site; Z99.89 Dependence on other enabling machines and devices; F41.0 Panic disorder [episodic paroxysmal anxiety]; F41.1 Generalized anxiety disorder; F32.9 Major depressive disorder, single episode, unspecified; I45.4 Nonspecific intraventricular block; F40.240 Claustrophobia; E66.9 Obesity, unspecified; Z68.33 Body mass index [BMI] 33.0-33.9, adult; Z79.01 Long term (current) use of anticoagulants; Z79.84 Long term (current) use of oral hypoglycemic drugs; Z79.891 Long term (current) use of opiate analgesic; Z79.899 Other long term (current) drug therapy; Z91.041 Radiographic dye allergy status; Z91.048 Other nonmedicinal substance allergy status; Z86.718 Personal history of other venous thrombosis and embolism; Z95.828 Presence of other vascular implants and grafts; Z86.711 Personal history of pulmonary embolism; Z94.81 Bone marrow transplant status; Z85.47 Personal history of malignant neoplasm of testis; Z96.643 Presence of artificial hip joint, bilateral; Z92.21 Personal history of antineoplastic chemotherapy; Z87.442 Personal history of urinary calculi; Z87.891 Personal history of nicotine dependence; Z82.5 Family history of asthma and other chronic lower respiratory diseases; Z82.49 Family history of ischemic heart disease and other diseases of the circulatory system; Z83.49 Family history of other endocrine, nutritional and metabolic diseases; Z82.0 Family history of epilepsy and other diseases of the nervous system
CPT/HCPCS: 96374; 96375; 99291; 36415; 93005; 93306; 83880; 80061; 80053; 82550 ×2; 82553 ×2; 83690; 83735; 84484 ×2; 85025; 85610; 85730; 83036; 71046; 71275; G0378 ×2; J1200; J2930; Q9967

== ENCOUNTER → 2020-04-16 | Outpatient (CLI) | payer MEDICARE, BC ==
--- NOTE | 2020-04-16 13:21 | CT ---
EXAMINATION TYPE: CT ChestAbdPelvis wo con DATE OF EXAM: 04/16/2020 COMPARISON: 02/28/2018 as well as 07/16/2017 HISTORY: Follow up cancer. CT DLP: 1591.4mGycm Unenhanced CT of the Chest, Abdomen and Pelvis Unenhanced CT of the chest ,abdomen and pelvis is performed. The lack of intravenous contrast limits evaluation of the solid and hollow viscera. Oral contrast: Yes CT Chest: LUNGS: The lungs are clear and free of infiltrate or atelectasis. No pulmonary nodule or mass is det ected. No pleural effusion or CT evidence of interstitial lung disease. MEDIASTINUM: Thoracic aorta is of normal caliber. The heart is not enlarged. No evidence for media stinal mass or adenopathy. HILAR STRUCTURES: No evidence for mass. No hilar adenopathy is appreciated. OTHER: No significant abnormality. CONTRAST CT ABDOMEN AND PELVIS: LIVER/GB: No calcified gallstones. No space occupying hepatic lesion. Biliary tree is of normal ca liber. PANCREAS: No inflammation. No distinct mass. SPLEEN: No splenic enlargement. No lesion seen. ADRENALS: No nodule. No thickening. KIDNEYS/BLADDER: No hydronephrosis. No nephrolithiasis. No disctinct renal mass. BOWEL: Normal appendix. Normal bowel caliber. No inflammation. GENITAL ORGANS: No gross abnormality. LYMPH NODES: No greater than 1cm abdominal or pelvic lymph nodes are appreciated. AORTA: No significant abnormality. OSSEOUS STRUCTURES: No significant abnormality is seen. Lateral hip prostheses are in place resultin g in streak artifact within the pelvis. There is also postsurgical change involving the lumbar spine. Multilevel degenerative disc disease and spondylosis noted. OTHER: No significant additional abnormality is seen. IMPRESSION: 1. No evidence for tumor recurrence or metastatic disease.
== END | disposition home or self-care (01) ==
LOC: RADCTMAIN 11:57
PROVIDERS: ATTEND Internal Medicine
DX: C62.11 Malignant neoplasm of descended right testis (principal); C62.90 Malignant neoplasm of unspecified testis, unspecified whether descended or undescended
CPT/HCPCS: 71250; 74176; 82105; 84702

== ENCOUNTER → 2021-11-20 | Outpatient (CLI) | payer MEDICARE, BC ==
--- NOTE | 2021-11-22 08:38 | CT ---
EXAMINATION TYPE: CT ChestAbdPelvis wo con DATE OF EXAM: 11/20/2021 COMPARISON: 04/16/2020 HISTORY: Malignant neoplasm of right testis CT DLP: 1505mGycm Unenhanced CT of the Chest, Abdomen and Pelvis Unenhanced CT of the chest ,abdomen and pelvis is performed. The lack of intravenous contrast limits evaluation of the solid and hollow viscera. Oral contrast: Yes CT Chest: LUNGS: The lungs are clear and free of infiltrate or atelectasis. No pulmonary nodule or mass is det ected. No pleural effusion or CT evidence of interstitial lung disease. MEDIASTINUM: Thoracic aorta is of normal caliber. The heart is not enlarged. No evidence for media stinal mass or adenopathy. HILAR STRUCTURES: No evidence for mass. No hilar adenopathy is appreciated. OTHER: No significant abnormality. CONTRAST CT ABDOMEN AND PELVIS: LIVER/GB: No calcified gallstones. No space occupying hepatic lesion. Biliary tree is of normal ca liber. Mild hepatic steatosis. PANCREAS: No inflammation. No distinct mass. SPLEEN: No splenic enlargement. No lesion seen. ADRENALS: No nodule. No thickening. KIDNEYS/BLADDER: No hydronephrosis. No nephrolithiasis. No disctinct renal mass. BOWEL: Normal appendix. Normal bowel caliber. No inflammation. GENITAL ORGANS: No gross abnormality. LYMPH NODES: No greater than 1cm abdominal or pelvic lymph nodes are appreciated. AORTA: No significant abnormality. OSSEOUS STRUCTURES: Postoperative changes of lumbar laminectomy and fusion. Bilateral hip prostheses resulting in significant streak artifact in the pelvis limiting portions of the study. OTHER: Changes of retroperitoneal dissection. IMPRESSION: 1. Stable evaluation. No evidence for metastatic disease.
== END | disposition home or self-care (01) ==
LOC: RADCTMAIN 13:48
PROVIDERS: ATTEND Internal Medicine
DX: C62.11 Malignant neoplasm of descended right testis (principal)
CPT/HCPCS: 71250; 74176

== ENCOUNTER → 2022-08-22 | Outpatient (CLI) | payer MEDICARE, BC ==
[2022-08-22 13:27] LABS: African American GFR (CKD) >90 (>60 ml/min/1.73 sqM); Blood Urea Nitrogen 35 mg/dL (9-20); Non-African American GFR(CKD) >90 (>60 ml/min/1.73 sqM)
--- NOTE | 2022-08-22 15:44 | CT ---
EXAMINATION TYPE: CT ChestAbdPelvis w con DATE OF EXAM: 08/22/2022 COMPARISON: 11/20/2021, 04/16/2020 HISTORY: 66-year-old male Hx testicular ca. Recent tumor markers were elevated. TECHNIQUE: Contiguous axial scanning of the chest, abdomen, and pelvis performed with IV Contrast, pa tient injected with 100 mL of Isovue 300. Delayed images through the kidneys were obtained. Coronal/s agittal reconstructions performed. CT DLP: 1958.30 mGycm Automated exposure control for dose reduction was used. FINDINGS: Chest: Heart normal size without pericardial effusion. Aorta normal caliber with conventional arch vessel branching anatomy. Nonenlarged mediastinal lymph nodes are unchanged. No thoracic adenopathy by CT size criteria. Mild emphysematous change. No consolidation or pleural effusion. ABDOMEN: Liver borderline in size at 17.5 cm with low attenuation compatible with fatty infiltration. Gallblad arin mildly hydropic at 4.3 cm wide but without any surrounding inflammation. Portal venous system is patent. No biliary ductal dilatation. Adrenal glands, spleen, and mildly atrophic pancreas show no gross abnormality. A couple benign renal cortical cysts measuring up to 9 mm on either side. Multiple surgical clips along the retroperitoneum. IVC filter noted. Some clustered nonenlarged retroperitoneal nodes in the precaval region near the level of the aortic bifurcation, axial imaging 5 measuring up to 9 mm remain unchanged. No retroperitoneal or mesenteric adenopathy seen. No dilated small bowel, free fluid, or free air. Normal appendix. Moderate stool burden. Sigmoid diverticulosis. No pericolonic inflammatory change. PELVIS: Bladder partially distended. Extensive streak and beam hardening artifact related to the patient's to katie hip arthroplasties limits visualization. Unchanged borderline size bilateral external iliac chain lymph nodes measuring up to 1 cm. No progressive pelvic lymphadenopathy seen. No abnormal fluid jillian ection the pelvis. Surgical clip at the left side of the scrotum. Bones: Bilateral total hip arthroplasties. Degenerative change SI joints. Generator device along the left upper gluteal region. Additional lower thoracic spine. Spinal stimulator array centered along the mid to lower thoracic spi nal canal. Advanced degenerative disc disease T12-L1 and L1-L2 with grade 1 retrolisthesis at L1-L2 and fixed gr ami 1 retrolisthesis secondary to interbody ankylosis at L2-L3. Posterior lumbar fusion with lateral osseous fusion L3-S1 levels. Corresponding laminectomies. No osseous destructive process seen. IMPRESSION: 1. No findings of recurrent or metastatic disease in the chest, abdomen, or pelvis. 2. 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
== END | disposition home or self-care (01) ==
LOC: RADCTMAIN 12:06
PROVIDERS: ATTEND Internal Medicine Hematology & Oncology
DX: C62.90 Malignant neoplasm of unspecified testis, unspecified whether descended or undescended (principal); J43.9 Emphysema, unspecified; K76.0 Fatty (change of) liver, not elsewhere classified
CPT/HCPCS: 82565; 84520; 71260; 74177; 36415; Q9967